=== PATIENT | male | born 1940 | race Caucasian/White ===

== ENCOUNTER → 2016-10-03 | Outpatient (CLI) | payer MEDICARE, BC ==
[2016-10-03 10:52] LABS: Hemoglobin A1C 9.3 % (4.2-6.1)
== END | disposition home or self-care (01) ==
LOC: LABWHC1 06:45
PROVIDERS: ATTEND Physician Assistant
DX: E11.9 Type 2 diabetes mellitus without complications (principal)
CPT/HCPCS: 36415; 83036

== ENCOUNTER → 2017-01-01 | Outpatient (CLI) | payer MEDICARE, BC ==
[2017-01-01 07:20] LABS: Basophils # (A) 0.1 k/uL (0-0.2); Basophils % (A) 1 %; CH 31.5; CHCM 35.6; Eosinophils # (A) 0.3 k/uL (0-0.7); Eosinophils % (A) 4 %; HCT 43.7 % (39.0-53.0); HGB 14.9 gm/dL (13.0-17.5); Luc # (Auto) 0.32; Luc % (Auto) 4; Lymphocytes # (A) 2.1 k/uL (1.0-4.8); Lymphocytes % (A) 26 %; MCH 30.3 pg (25.0-35.0); MCHC 34.1 g/dL (31.0-37.0); MCV 88.8 fL (80.0-100.0); Mean Platelet Volume 8.6; Monocytes # (A) 0.6 k/uL (0-1.0); Monocytes % (A) 7 %; Neutrophils # (A) 4.6 k/uL (1.3-7.7); Neutrophils % (A) 58 %; RBC 4.92 m/uL (4.30-5.90); RDW 13.8 % (11.5-15.5); WBC 7.9 k/uL (3.8-10.6); WBC (Perox) 8.45
[2017-01-01 13:58] LABS: ALT 49 U/L (21-72); AST 36 U/L (17-59); Alkaline Phosphatase 135 U/L (38-126); Anion Gap 10 mmol/L; Blood Urea Nitrogen 20 mg/dL (9-20); Calcium 9.4 mg/dL (8.4-10.2); Carbon Dioxide 28 mmol/L (22-30); Chloride 102 mmol/L (98-107); Cholesterol 153 mg/dL (<200); Glucose 220 mg/dL (74-99); HDL Cholesterol 36 mg/dL (40-60); Non-African American GFR(MDRD) >60 (>60 ml/min/1.73 sqM); Potassium 4.4 mmol/L (3.5-5.1); Sodium 140 mmol/L (137-145); Total Bilirubin 0.9 mg/dL (0.2-1.3); Triglycerides 189 mg/dL (<150)
[2017-01-01 14:18] LABS: Prostate Specific Antigen <0.06 ng/mL (0.00-4.00)
== END | disposition home or self-care (01) ==
LOC: LABWHC1 06:51
PROVIDERS: ATTEND Family Medicine
DX: E78.5 Hyperlipidemia, unspecified (principal); E11.59 Type 2 diabetes mellitus with other circulatory complications; Z12.5 Encounter for screening for malignant neoplasm of prostate
CPT/HCPCS: 36415; 80053; 80061; 83036; 84153; 84443; 85025

== ENCOUNTER → 2017-04-02 | Outpatient (CLI) | payer MEDICARE, BC ==
[2017-04-02 08:18] LABS: Basophils # (A) 0.1 k/uL (0-0.2); Basophils % (A) 1 %; CHCM 34.5; Eosinophils # (A) 0.3 k/uL (0-0.7); Eosinophils % (A) 4 %; HDW 2.82; HGB 15.7 gm/dL (13.0-17.5); Luc # (Auto) 0.25; Luc % (Auto) 3; Lymphocytes # (A) 2.2 k/uL (1.0-4.8); Lymphocytes % (A) 28 %; MCH 30.1 pg (25.0-35.0); MCHC 33.3 g/dL (31.0-37.0); MCV 90.3 fL (80.0-100.0); Mean Platelet Volume 9.4; Monocytes # (A) 0.6 k/uL (0-1.0); Monocytes % (A) 7 %; Neutrophils # (A) 4.5 k/uL (1.3-7.7); Neutrophils % (A) 57 %; RBC 5.21 m/uL (4.30-5.90); RDW 13.8 % (11.5-15.5); WBC 7.9 k/uL (3.8-10.6); WBC (Perox) 7.57
[2017-04-02 08:31] LABS: ALT 60 U/L (21-72); AST 41 U/L (17-59); Alkaline Phosphatase 130 U/L (38-126); Anion Gap 9 mmol/L; Blood Urea Nitrogen 20 mg/dL (9-20); Calcium 9.5 mg/dL (8.4-10.2); Carbon Dioxide 27 mmol/L (22-30); Chloride 106 mmol/L (98-107); Glucose 156 mg/dL (74-99); Non-African American GFR(MDRD) >60 (>60 ml/min/1.73 sqM); Potassium 4.2 mmol/L (3.5-5.1); Sodium 142 mmol/L (137-145); Total Bilirubin 0.7 mg/dL (0.2-1.3); Total Protein 6.8 g/dL (6.3-8.2)
[2017-04-02 12:44] LABS: Hemoglobin A1C 8.7 % (4.2-6.1)
== END | disposition home or self-care (01) ==
LOC: LABWHC1 07:15
PROVIDERS: ATTEND Family Medicine
DX: E11.59 Type 2 diabetes mellitus with other circulatory complications (principal)
CPT/HCPCS: 36415; 80053; 83036; 85025

== ENCOUNTER → 2017-04-21 | Outpatient (CLI) | payer MEDICARE, BC ==
[2017-04-21 07:09] LABS: ALT 55 U/L (21-72); AST 37 U/L (17-59); Cholesterol 195 mg/dL (<200); HDL Cholesterol 36 mg/dL (40-60); Triglycerides 273 mg/dL (<150)
== END | disposition home or self-care (01) ==
LOC: LABWHC1 06:39
PROVIDERS: ATTEND Internal Medicine Cardiovascular Disease
DX: E78.2 Mixed hyperlipidemia (principal)
CPT/HCPCS: 36415; 80061; 84450; 84460

== ENCOUNTER → 2017-07-03 | Outpatient (CLI) | payer MEDICARE, BC ==
[2017-07-03 07:47] LABS: Basophils # (A) 0.1 k/uL (0-0.2); Basophils % (A) 1 %; CH 30.6; CHCM 33.9; Eosinophils # (A) 0.3 k/uL (0-0.7); Eosinophils % (A) 4 %; HCT 44.5 % (39.0-53.0); HDW 2.94; HGB 15.2 gm/dL (13.0-17.5); Luc # (Auto) 0.16; Luc % (Auto) 3; Lymphocytes # (A) 1.7 k/uL (1.0-4.8); Lymphocytes % (A) 25 %; MCH 31.1 pg (25.0-35.0); MCHC 34.3 g/dL (31.0-37.0); MCV 90.8 fL (80.0-100.0); Mean Platelet Volume 8.6; Monocytes # (A) 0.6 k/uL (0-1.0); Monocytes % (A) 10 %; Neutrophils # (A) 3.8 k/uL (1.3-7.7); Neutrophils % (A) 58 %; RDW 13.1 % (11.5-15.5); WBC 6.6 k/uL (3.8-10.6); WBC (Perox) 6.45
[2017-07-03 07:56] LABS: Hemoglobin A1C 8.6 % (4.2-6.1)
[2017-07-03 08:00] LABS: ALT 62 U/L (21-72); AST 40 U/L (17-59); Alkaline Phosphatase 136 U/L (38-126); Anion Gap 10 mmol/L; Blood Urea Nitrogen 18 mg/dL (9-20); Calcium 9.7 mg/dL (8.4-10.2); Carbon Dioxide 26 mmol/L (22-30); Chloride 104 mmol/L (98-107); Glucose 277 mg/dL (74-99); Non-African American GFR(MDRD) >60 (>60 ml/min/1.73 sqM); Potassium 4.5 mmol/L (3.5-5.1); Sodium 140 mmol/L (137-145); Total Bilirubin 0.7 mg/dL (0.2-1.3)
== END | disposition home or self-care (01) ==
LOC: LABWHC1 07:23
PROVIDERS: ATTEND Family Medicine
DX: E11.9 Type 2 diabetes mellitus without complications (principal)
CPT/HCPCS: 36415; 80053; 83036; 85025

== ENCOUNTER → 2017-12-31 | Outpatient (CLI) | payer MEDICARE, BC ==
[2017-12-31 09:44] LABS: Basophils % (A) 1 %; Eosinophils # (A) 0.3 k/uL (0-0.7); Eosinophils % (A) 4 %; HCT 42.5 % (39.0-53.0); HGB 15.1 gm/dL (13.0-17.5); Lymphocytes % (A) 23 %; MCH 30.8 pg (25.0-35.0); MCHC 35.5 g/dL (31.0-37.0); MCV 86.6 fL (80.0-100.0); Mean Platelet Volume 8.4; Monocytes # (A) 0.7 k/uL (0-1.0); Monocytes % (A) 8 %; Neutrophils # (A) 5.4 k/uL (1.3-7.7); Neutrophils % (A) 62 %; Platelet Count 178 k/uL (150-450); RBC 4.91 m/uL (4.30-5.90); RDW 13.6 % (11.5-15.5); WBC 8.6 k/uL (3.8-10.6)
[2017-12-31 14:42] LABS: ALT 41 U/L (21-72); AST 32 U/L (17-59); Albumin 4.1 g/dL (3.5-5.0); Alkaline Phosphatase 98 U/L (38-126); Anion Gap 11 mmol/L; Blood Urea Nitrogen 21 mg/dL (9-20); Calcium 10.3 mg/dL (8.4-10.2); Carbon Dioxide 32 mmol/L (22-30); Chloride 104 mmol/L (98-107); Cholesterol 148 mg/dL (<200); Glucose 77 mg/dL (74-99); HDL Cholesterol 42 mg/dL (40-60); LDL Cholesterol,Calculated 69 mg/dL (0-99); Potassium 4.3 mmol/L (3.5-5.1); Sodium 147 mmol/L (137-145); Total Bilirubin 0.5 mg/dL (0.2-1.3); Total Protein 7.1 g/dL (6.3-8.2); Triglycerides 185 mg/dL (<150)
[2017-12-31 15:17] LABS: Prostate Specific Antigen <0.10 ng/mL (0.00-4.00)
[2017-12-31 19:30] LABS: Hemoglobin A1C 7.6 % (4.0-6.0)
== END | disposition home or self-care (01) ==
LOC: LABWHC1 09:04
PROVIDERS: ATTEND Family Medicine
DX: E11.9 Type 2 diabetes mellitus without complications (principal); Z12.5 Encounter for screening for malignant neoplasm of prostate
CPT/HCPCS: 36415; 80053; 80061; 83036; 84153; 85025

== ENCOUNTER → 2018-04-03 | Outpatient (CLI) | payer MEDICARE, BC ==
[2018-04-03 07:27] LABS: ALT 41 U/L (21-72); AST 32 U/L (17-59); Albumin 4.1 g/dL (3.5-5.0); Alkaline Phosphatase 117 U/L (38-126); Anion Gap 7 mmol/L; Blood Urea Nitrogen 17 mg/dL (9-20); Calcium 9.1 mg/dL (8.4-10.2); Carbon Dioxide 28 mmol/L (22-30); Chloride 106 mmol/L (98-107); Glucose 157 mg/dL (74-99); Potassium 4.1 mmol/L (3.5-5.1); Sodium 141 mmol/L (137-145); Total Bilirubin 0.5 mg/dL (0.2-1.3); Total Protein 6.7 g/dL (6.3-8.2)
[2018-04-03 20:28] LABS: Hemoglobin A1C 7.4 % (4.0-6.0)
== END | disposition home or self-care (01) ==
LOC: LABWHC1 06:44
PROVIDERS: ATTEND Family Medicine
DX: E11.9 Type 2 diabetes mellitus without complications (principal)
CPT/HCPCS: 36415; 80053; 82043; 82570; 83036

== ENCOUNTER → 2018-05-19 | Outpatient (CLI) | payer MEDICARE, BC ==
[2018-05-19 07:25] LABS: ALT 43 U/L (21-72); AST 33 U/L (17-59); Cholesterol 167 mg/dL (<200); HDL Cholesterol 37 mg/dL (40-60); LDL Cholesterol,Calculated 73 mg/dL (0-99); Triglycerides 285 mg/dL (<150)
== END | disposition home or self-care (01) ==
LOC: LABWHC1 06:50
PROVIDERS: ATTEND Internal Medicine Cardiovascular Disease
DX: E78.2 Mixed hyperlipidemia (principal)
CPT/HCPCS: 36415; 80061; 84450; 84460

== ENCOUNTER → 2020-01-25 | Outpatient (CLI) | payer MEDICARE, BC | END | disposition home or self-care (01) | LOC: LABWHC1 09:47 | PROVIDERS: ATTEND Surgery Plastic and Reconstructive Surgery | DX: U07.1 COVID-19 (principal) | CPT/HCPCS: 87635 ==

== ENCOUNTER 2020-02-03 07:05 | Day surgery (SDC) | payer MEDICARE, BC ==
[2020-02-01 16:39] VITALS: BMI 30.7
--- NOTE | 2020-02-02 19:26 | P.GSHP ---
History of Present Illness H&P Date: 02/03/20 CHIEF COMPLAINT: Cologaurd positive HISTORY OF PRESENT ILLNESS: The patient is a 79-year-old male who presents with positive cologaurd. Lower endoscopy was offered for further evaluation and management. PAST MEDICAL HISTORY: Please see list. PAST SURGICAL HISTORY: Please see list. MEDICATIONS: Please see list. ALLERGIES: Please see list. SOCIAL HISTORY: No illicit drug use FAMILY HISTORY: No reports of Crohn disease or ulcerative colitis. REVIEW OF ORGAN SYSTEMS: CONSTITUTIONAL: No reports of fevers or chills. PHYSICAL EXAM: VITAL SIGNS: Stable GENERAL: Well-developed pleasant in no acute distress. HEENT: No scleral icterus. Extraocular movements grossly intact. Moist buccal mucosa. NECK: Supple without lymphadenopathy. CHEST: Unlabored respirations. Equal bilateral excursions. CARDIOVASCULAR: Regular rate and rhythm. Distal 2+ pulses. ABDOMEN: Soft, nontender, nondistended. MUSCULOSKELETAL: No clubbing, cyanosis, or edema. ASSESSMENT: 1. Positive cologaurd. PLAN: 1. Recommend proceeding with a lower endoscopy Past Medical History Past Medical History: Diabetes Mellitus, GERD/Reflux, Hyperlipidemia Additional Past Medical History / Comment(s): STATES DR SEEN SOMETHING WITH PREVIOUS COLONOSCOPY., PT UNSURE WHAT HE TAKES VASOTEC AND AMLODIPINE FOR. History of Any Multi-Drug Resistant Organisms: None Reported Past Surgical History: Joint Replacement Additional Past Surgical History / Comment(s): carolyn total knee , colonoscopy, cataracts Past Anesthesia/Blood Transfusion Reactions: No Reported Reaction Past Psychological History: No Psychological Hx Reported Smoking Status: Former smoker Past Alcohol Use History: None Reported Additional Past Alcohol Use History / Comment(s): quit smoking over 25 yrs ago, smoked 1 ppd. Past Drug Use History: None Reported - Past Family History Mother Family Medical History: No Reported History Medications and Allergies Home Medications Medication Instructions Recorded Confirmed Type Aspirin [Adult Low Dose Aspirin EC] 81 mg PO DAILY 02/01/20 02/01/20 History Atorvastatin [Lipitor] 20 mg PO HS 02/01/20 02/01/20 History Enalapril [Vasotec] 5 mg PO DAILY 02/01/20 02/01/20 History Glimepiride [Amaryl] 2 mg PO AC-BRKFST 02/01/20 02/01/20 History Insulin Aspart Protam & Aspart 105 unit SQ DAILY 02/01/20 02/01/20 History [NovoLOG MIX 70-30 Flexpen] Insulin Aspart Protam & Aspart 115 unit SQ HS 02/01/20 02/01/20 History [NovoLOG MIX 70-30 Flexpen] Liraglutide [Victoza 2-Vasquez] 1.2 mg SQ DAILY 02/01/20 02/01/20 History Omeprazole [PriLOSEC] 40 mg PO DAILY 02/01/20 02/01/20 History amLODIPine [Norvasc] 10 mg PO DAILY 02/01/20 02/01/20 History Allergies Allergy/AdvReac Type Severity Reaction Status Date / Time No Known Allergies Allergy Verified 02/01/20 16:08
[~2020-02-03 07:05] MED LIST: LACTATED RINGERS 1,000 ML IV SCH
[2020-02-03 07:47] LABS: Glucose,Whole Blood 83 mg/dL (75-99)
[2020-02-03 07:49] VITALS: RESP 16; TEMP 97
[2020-02-03] MEDS ORDERED: LIDOCAINE 1% INJ 10MG/ML (20 ML MDV) ONE (08:26)
[2020-02-03] MEDS ORDERED: MIDAZOLAM 2 MG/2 ML VIAL ONE (08:26)
[2020-02-03] MEDS ORDERED: PROPOFOL 10 MG/ML 20 ML VIAL IV ONE (08:26)
--- NOTE | 2020-02-03 09:10 | P.PCN ---
Date of Procedure: 02/03/20 Description of Procedure: PREOPERATIVE DIAGNOSIS: Positive cologaurd First lifetime colonoscopy POSTOPERATIVE DIAGNOSIS: Tubular adenoma ascending colon Tubular adenoma transverse colon Adenoma descending colon Sigmoid diverticulosis, moderate to severe OPERATION: Colonoscopy to the ileocecal valve and appendiceal orifice. Colonoscopy with multiple hot snare polypectomies SURGEON: Lauryn Chu MD. ANESTHESIA: MAC. INDICATIONS: The patient is an 79-year-old male who presents for his first colonoscopy in his lifetime. He had a positive stool test, cologaurd. Benefits and risks were described and informed consent was obtained. DESCRIPTION OF PROCEDURE: The patient had undergone Suprep. He had been brought into the operating room and laid in the left lateral decubitus position. After adequate intravenous sedation, the rectum was examined with 2% lidocaine jelly. The prostate was unremarkable. No external hemorrhoids were encountered. The rectal tone was within normal limits. No lesions were palpated in the rectal vault. An Olympus colonoscope was advanced until the ileocecal valve and appendiceal orifice were clearly viewed. The prep was good. Sigmoid diverticulosis moderate to severe was encountered. Multiple colonic polyps were found and snare polypectomy. No evidence of focal colitis was found. Retroflexion of the scope demonstrated grade 1 internal hemorrhoids without active bleeding or inflammation. The colon was desufflated. The patient had tolerated the procedure well. Withdrawal time was over 6 minutes. FINDINGS: Aronchick preparation quality scale 1 (1-5) Internal hemorrhoids, grade 1 without recent inflammation and bleeding No arteriovenous malformations. Sigmoid diverticulosis, moderate to severe Removal of 6 polyps: - Snare polypectomy at cecum, 4 mm tubulovillous adenoma polyp. - Snare polypectomy 60 cm from the anal verge, 8 mm flat villous adenoma polyp, distal transverse colon - Snare polypectomy 50 cm from the anal verge, 12 mm flat villous adenoma polyp, descending colon - Snare polypectomy 48 cm from the anal verge, 5 mm tubulovillous adenoma polyp, descending colon - Snare polypectomy 46 cm from the anal verge, 8 mm flat villous adenoma polyp, descending colon - Snare polypectomy 38 cm from the anal verge, 12 mm flat villous adenoma polyp, descending colon No focal colitis. RECOMMENDATIONS: Given severity of tubular adenomas, recommend repeat colonoscopy 2 years, 2021. Plan - Discharge Summary New Discharge Prescriptions: No Action Aspirin [Adult Low Dose Aspirin EC] 81 mg PO DAILY Glimepiride [Amaryl] 2 mg PO AC-BRKFST amLODIPine [Norvasc] 10 mg PO DAILY Enalapril [Vasotec] 5 mg PO DAILY Omeprazole [PriLOSEC] 40 mg PO DAILY Atorvastatin [Lipitor] 20 mg PO HS Insulin Aspart Protam & Aspart [NovoLOG MIX 70-30 Flexpen] 105 unit SQ DAILY Insulin Aspart Protam & Aspart [NovoLOG MIX 70-30 Flexpen] 115 unit SQ HS Liraglutide [Victoza 2-Vasquez] 1.2 mg SQ DAILY Discharge Medication List Aspirin [Adult Low Dose Aspirin EC] 81 mg PO DAILY 02/01/20 [History] Atorvastatin [Lipitor] 20 mg PO HS 02/01/20 [History] Enalapril [Vasotec] 5 mg PO DAILY 02/01/20 [History] Glimepiride [Amaryl] 2 mg PO AC-BRKFST 02/01/20 [History] Insulin Aspart Protam & Aspart [NovoLOG MIX 70-30 Flexpen] 105 unit SQ DAILY 02/01/20 [History] Insulin Aspart Protam & Aspart [NovoLOG MIX 70-30 Flexpen] 115 unit SQ HS 02/01/20 [History] Liraglutide [Victoza 2-Vasquez] 1.2 mg SQ DAILY 02/01/20 [History] Omeprazole [PriLOSEC] 40 mg PO DAILY 02/01/20 [History] amLODIPine [Norvasc] 10 mg PO DAILY 02/01/20 [History]
--- NOTE | 2020-02-03 09:17 | P.HPADDEND ---
H&P Addendum H&P Addendum Date: 02/03/20 Patient never had a colonoscopy before. He has a positive stool study test for adenoma. We'll proceed with colonoscopy
[2020-02-03 09:28] LABS: Glucose,Whole Blood 32 mg/dL (75-99)
[2020-02-03 09:28] LABS: Glucose,Whole Blood 33 mg/dL (75-99)
[2020-02-03] MEDS ORDERED: DEXTROSE 50% SYRINGE 50 ML IVP ONE (09:30)
[2020-02-03] MEDS ORDERED: LACTATED RINGERS 1,000 ML IV ONE (09:30)
[2020-02-03 09:33] VITALS: PULSE 67
[2020-02-03 09:48] LABS: Glucose,Whole Blood 120 mg/dL (75-99)
[2020-02-03 09:51] VITALS: BP 139/64
== END 2020-02-03 10:00 | disposition home or self-care (01) ==
LOC: ORWHC2ENDO 07:05
PROVIDERS: ATTEND Surgery Plastic and Reconstructive Surgery
DX: D12.0 Benign neoplasm of cecum (principal); D12.4 Benign neoplasm of descending colon; D12.3 Benign neoplasm of transverse colon; D12.2 Benign neoplasm of ascending colon; K57.30 Diverticulosis of large intestine without perforation or abscess without bleeding; K64.0 First degree hemorrhoids; I10 Essential (primary) hypertension; E11.9 Type 2 diabetes mellitus without complications; E78.5 Hyperlipidemia, unspecified; K21.9 Gastro-esophageal reflux disease without esophagitis; Z87.891 Personal history of nicotine dependence; Z79.4 Long term (current) use of insulin; Z79.82 Long term (current) use of aspirin; Z79.899 Other long term (current) drug therapy; Z98.890 Other specified postprocedural states; Z96.653 Presence of artificial knee joint, bilateral; Z98.49 Cataract extraction status, unspecified eye
CPT/HCPCS: 88305; 87635; 45385; J2250; J2001; J2704

== ENCOUNTER 2020-03-19 13:00 | Emergency (ER) | payer MEDICARE, BC ==
[2020-03-19 13:23] VITALS: BP 122/61; PULSE 95; RESP 18; TEMP 98.4
[2020-03-19] MEDS ORDERED: MORPHINE SULFATE 4 MG/ML SYRINGE IM STA (14:54)
--- NOTE | 2020-03-19 15:20 | XR ---
EXAMINATION TYPE: XR Hip RT and AP Pelvis DATE OF EXAM: 03/19/2020 COMPARISON: NONE HISTORY: Hip pain TECHNIQUE: 3 views FINDINGS: Pelvic ring is intact. There is some minimal acetabular spurring. There is evidence of nond isplaced chip fracture of the greater trochanter of the right femur. There is vascular calcification. Sacroiliac joint appears intact. IMPRESSION: Chip fracture of the greater trochanter.
--- NOTE | 2020-03-19 15:41 | ED ---
General Adult HPI - General Chief complaint: Extremity Injury, Lower Stated complaint: Fall- Hip Injury Time Seen by Provider: 03/19/20 14:37 Source: patient, RN notes reviewed Mode of arrival: wheelchair Limitations: no limitations - History of Present Illness Initial comments: 71-year-old male presents to the emergency department for a chief complaint of right hip pain. Patient [place] when he tripped and fell over a hose. Patient fell and hit his right hip. States he has been able to ambulate on it but it is painful. States it is painful to bend and move. Patient did not hit his head. He did not have any other injuries. He does not take any blood thinners.Patient has no other complaints at this time including shortness of breath, chest pain, abdominal pain, nausea or vomiting, headache, or visual changes. - Related Data Home Medications Medication Instructions Recorded Confirmed Aspirin [Adult Low Dose Aspirin EC] 81 mg PO DAILY 02/01/20 02/03/20 Atorvastatin [Lipitor] 20 mg PO HS 02/01/20 02/03/20 Enalapril [Vasotec] 5 mg PO DAILY 02/01/20 02/03/20 Glimepiride [Amaryl] 2 mg PO AC-BRKFST 02/01/20 02/03/20 Insulin Aspart Protam & Aspart 105 unit SQ DAILY 02/01/20 02/03/20 [NovoLOG MIX 70-30 Flexpen] Insulin Aspart Protam & Aspart 115 unit SQ HS 02/01/20 02/03/20 [NovoLOG MIX 70-30 Flexpen] Liraglutide [Victoza 2-Vasquez] 1.2 mg SQ DAILY 02/01/20 02/03/20 Omeprazole [PriLOSEC] 40 mg PO DAILY 02/01/20 02/03/20 amLODIPine [Norvasc] 10 mg PO DAILY 02/01/20 02/03/20 Allergies Allergy/AdvReac Type Severity Reaction Status Date / Time No Known Allergies Allergy Verified 03/19/20 13:23 Review of Systems ROS Statement: Those systems with pertinent positive or pertinent negative responses have been documented in the HPI. ROS Other: All systems not noted in ROS Statement are negative. Past Medical History Past Medical History: Diabetes Mellitus, Hyperlipidemia, Hypertension History of Any Multi-Drug Resistant Organisms: None Reported Past Surgical History: Joint Replacement Additional Past Surgical History / Comment(s): eye surgery Past Psychological History: No Psychological Hx Reported Smoking Status: Former smoker Past Alcohol Use History: None Reported Past Drug Use History: None Reported General Exam Limitations: no limitations General appearance: alert, in no apparent distress Head exam: Present: atraumatic, normocephalic, normal inspection Eye exam: Present: normal appearance ENT exam: Present: normal exam, mucous membranes moist Neck exam: Present: normal inspection. Absent: tenderness, meningismus, lymphadenopathy Respiratory exam: Present: normal lung sounds bilaterally. Absent: respiratory distress, wheezes, rales, rhonchi, stridor Cardiovascular Exam: Present: regular rate, normal rhythm, normal heart sounds. Absent: systolic murmur, diastolic murmur, rubs, gallop, clicks GI/Abdominal exam: Present: soft, normal bowel sounds. Absent: distended, tenderness, guarding, rebound, rigid Extremities exam: Present: normal inspection, tenderness (Tenderness to the lateral aspect of the right hip.), normal capillary refill (Capillary refill less than 2 seconds, DP signals evident on Doppler.). Absent: full ROM (Patient has limited range of motion of the right hip secondary to pain however flexor and extensor mechanisms are intact.), pedal edema, joint swelling, calf tenderness Course Vital Signs 03/19/20 13:20 Temperature 98.4 F Pulse Rate 95 Respiratory 18 Rate Blood Pressure 122/61 O2 Sat by Pulse 99 Oximetry Medical Decision Making - Medical Decision Making X-ray of the right hip and pelvis shows a chip fracture of the greater trochanter. Patient was able to ambulate with assistance well in the emergency room. Patient was given IM morphine and did have improvement in pain. Patient was offered [place] for home but refused and requested Tylenol 3. Patient's family member state they're comfortable caring for patient. She states she works at [employer] and is able to help him around the house. States they have a ramp and a shower chair. He will follow up with orthopedics on Friday. He'll return here for any worsening symptoms. Disposition Clinical Impression: Hip pain, right, Fracture of greater trochanter Disposition: HOME SELF-CARE Condition: Good Instructions (If sedation given, give patient instructions): Hip Fracture (ED) Additional Instructions: Please take Tylenol 3 and Motrin for pain. Follow-up with orthopedics on Monda y. If you have worsening pain or are unable to tolerate pain or care for herself at home return to the emergency room. Is patient prescribed a controlled substance at d/c from ED?: No Referrals: Natanael Gibbons MD [Primary Care Provider] - 1-2 days Arnol Naidu MD [Medical Doctor] - 1-2 days Time of Disposition: 16:15
[2020-03-19] MEDS ORDERED: ACET/COD 300 MG/30 MG STARTER PACK 6 TAB BTL PO STA (16:48)
== END 2020-03-19 17:05 | disposition home or self-care (01) ==
LOC: EC 13:00
DX: S72.114A Nondisplaced fracture of greater trochanter of right femur, initial encounter for closed fracture (principal); E11.9 Type 2 diabetes mellitus without complications; E78.5 Hyperlipidemia, unspecified; I10 Essential (primary) hypertension; Z79.82 Long term (current) use of aspirin; Z79.4 Long term (current) use of insulin; Z79.899 Other long term (current) drug therapy; Z87.891 Personal history of nicotine dependence; W01.10XA Fall on same level from slipping, tripping and stumbling with subsequent striking against unspecified object, initial encounter; Y93.01 Activity, walking, marching and hiking; Y92.009 Unspecified place in unspecified non-institutional (private) residence as the place of occurrence of the external cause
CPT/HCPCS: 73502; 96372; 99283; J2270

== ENCOUNTER → 2020-04-12 | Outpatient (CLI) | payer MEDICARE, BC ==
--- NOTE | 2020-04-12 12:36 | CT ---
EXAMINATION TYPE: CT hip RT wo con DATE OF EXAM: 04/12/2020 COMPARISON: Pelvis and right hip radiograph 03/19/2020 HISTORY: Nondisplaced fracture right femur CT DLP: 563.6 mGycm Automated exposure control for dose reduction was used. TECHNIQUE: CT imaging through the right hip was obtained without administration of intravenous contra st. Coronal and sagittal reformatted images were obtained. Three-dimensional images were generated on a separate workstation. FINDINGS: There is a comminuted fracture of the right femur greater trochanter with mild displacement, and no s ignificant angulation. There is no extension of the fracture to the intertrochanteric region. There i s minimal soft tissue edema associated with the fracture. Diffusely decreased osseous mineralization. No evidence of hip dislocation.. There is mild degenerative spurring of the right hip. 3-dimensional images consistent with the above findings. IMPRESSION: COMMINUTED MILDLY DISPLACED FRACTURE OF THE RIGHT FEMUR GREATER TROCHANTER.
== END | disposition home or self-care (01) ==
LOC: RADCTMAIN 08:59
PROVIDERS: ATTEND Orthopaedic Surgery
DX: S72.111A Displaced fracture of greater trochanter of right femur, initial encounter for closed fracture (principal)

== ENCOUNTER → 2020-06-23 | Outpatient (CLI) | payer MEDICARE, BC ==
[2020-06-23 19:40] LABS: Chol/HDL Ratio 4.89
== END | disposition home or self-care (01) ==
LOC: LABWHC1 07:23
PROVIDERS: ATTEND Internal Medicine Cardiovascular Disease
DX: E78.5 Hyperlipidemia, unspecified (principal)
CPT/HCPCS: 36415; 80061; 84450; 84460

== ENCOUNTER 2021-01-21 16:12 | Inpatient (IN) | payer MEDICARE, BC ==
[2021-01-21 16:21] LABS: Glucose,Whole Blood 153 mg/dL (75-99)
--- NOTE | 2021-01-21 16:44 | ED ---
General Adult HPI - General Source: patient Mode of arrival: ambulatory Limitations: no limitations <Pavan Marrero - Last Filed: 01/21/21 18:44> <Yanira Palma - Last Filed: 02/03/21 18:02> - General Chief complaint: Recheck/Abnormal Lab/Rx Stated complaint: Low blood sugar/sent by PCP Time Seen by Provider: 01/21/21 16:21 - History of Present Illness Initial comments: 80-year-old male presents to the emergency room for a chief complaint of low blood sugar. Patient reports that he has had low blood sugar . States he was at his primary care doctor's office and had blood work drawn and was called Friday to Tylenol is low. Patient states he had an episode of weakness today where he had to sit down on the ground and get help from his neighbor. When he checked his blood sugar was 51. Patient drank apple juice and ate crackers. Patient called his doctor who told him to come into the ER. Patient does take 105 units of NovoLog in the morning which she did take today and 115 units at night. Patient has not had any recent adjustments.Patient has no other complaints at this time including shortness of breath, chest pain, abdominal pain, nausea or vomiting, headache, or visual changes. (Pavan Marrero) - Related Data Home Medications Medication Instructions Recorded Confirmed Aspirin [Adult Low Dose Aspirin EC] 81 mg PO DAILY 02/01/20 01/21/21 Enalapril [Vasotec] 5 mg PO DAILY 02/01/20 01/21/21 Glimepiride [Amaryl] 4 mg PO AC-BRKFST 02/01/20 01/21/21 Liraglutide [Victoza 2-Vasquez] 1.2 mg SQ DAILY 02/01/20 01/21/21 Omeprazole [PriLOSEC] 40 mg PO DAILY 02/01/20 01/21/21 amLODIPine [Norvasc] 10 mg PO DAILY 02/01/20 01/21/21 [place]-3 Fatty Acids/Fish Oil [Fish 1 cap PO DAILY 01/21/21 01/21/21 Oil 1,000 mg Softgel] Previous Rx's Medication Instructions Recorded Atorvastatin [Lipitor] 80 mg PO HS 30 Days #30 tab 01/24/21 Azithromycin [Zithromax Z-pack (6 See Taper PO DIRECTED 5 Days #6 01/24/21 tabs)] tab Cefdinir [Omnicef] 300 mg PO Q12HR 5 Days #10 capsule 01/24/21 Clopidogrel Bisulfate [Plavix] 75 mg PO DAILY 30 Days #30 tab 01/24/21 Clopidogrel [Plavix] 75 mg PO DAILY 30 Days #30 tab 01/24/21 Insuln Asp Prt/Insulin Aspart 50 unit SQ AC-BID #7 vial 01/24/21 [NovoLOG MIX 70-30 VIAL] Allergies Allergy/AdvReac Type Severity Reaction Status Date / Time No Known Allergies Allergy Verified 01/21/21 17:10 Review of Systems ROS Other: All systems not noted in ROS Statement are negative. <Pavan Marrero P - Last Filed: 01/21/21 18:44> ROS Other: All systems not noted in ROS Statement are negative. <Yanira Palma A - Last Filed: 02/03/21 18:02> ROS Statement: Those systems with pertinent positive or pertinent negative responses have been documented in the HPI. Past Medical History Past Medical History: Diabetes Mellitus, Hyperlipidemia, Hypertension History of Any Multi-Drug Resistant Organisms: None Reported Past Surgical History: Joint Replacement Additional Past Surgical History / Comment(s): eye surgery Past Psychological History: No Psychological Hx Reported Smoking Status: Never smoker Past Alcohol Use History: None Reported Past Drug Use History: None Reported <Pavan Marrero P - Last Filed: 01/21/21 18:44> General Exam Limitations: no limitations General appearance: alert, in no apparent distress Head exam: Present: atraumatic, normocephalic, normal inspection Eye exam: Present: normal appearance, PERRL, EOMI. Absent: scleral icterus, conjunctival injection, periorbital swelling ENT exam: Present: normal exam, mucous membranes moist Neck exam: Present: normal inspection. Absent: tenderness, meningismus, lymphadenopathy Respiratory exam: Present: normal lung sounds bilaterally. Absent: respiratory distress, wheezes, rales, rhonchi, stridor Cardiovascular Exam: Present: regular rate, normal rhythm, normal heart sounds. Absent: systolic murmur, diastolic murmur, rubs, gallop, clicks GI/Abdominal exam: Present: soft, normal bowel sounds. Absent: distended, tenderness, guarding, rebound, rigid <Janes,Pavan P - Last Filed: 01/21/21 18:44> Course Vital Signs 01/21/21 01/21/21 01/21/21 16:13 17:42 18:00 Temperature 97.4 F L Pulse Rate 94 70 77 Respiratory 17 18 18 Rate Blood Pressure 144/70 141/68 120/70 O2 Sat by Pulse 97 97 97 Oximetry 01/21/21 19:16 Temperature 97.4 F L Pulse Rate 77 Respiratory 18 Rate Blood Pressure 120/70 O2 Sat by Pulse 97 Oximetry Medical Decision Making - Lab Data Result diagrams: 01/21/21 17:30 01/21/21 17:30 <Pavan Marrero - Last Filed: 01/21/21 18:44> - Lab Data Result diagrams: 01/24/21 06:19 01/24/21 06:19 <Yanira Palma - Last Filed: 02/03/21 18:02> - Medical Decision Making Vitals are stable. Patient is well-appearing. White count of undetermined second consists noted at 19.5. Urinalysis unremarkable, chest x-ray shows no acute process. No fevers. CMP shows minimal hyperkalemia of 5.2. Patient has a glucose of 153 and 241 respectively. I did discuss his case with patient's primary care provider. Given recent episodes of hypoglycemia an episode of weakness today in which patient felt he could not get up to walk into the house he does want patient admitted for observation. (Pavan Marrero) I was available for consultation in the emergency department. The history and physical exam were done by the midlevel provider. I was consulted for this patients care. I reviewed the case with the midlevel provider and based on their presentation of the patient, I agree with the assessment, medical decision making and plan of care as documented. Chart was dictated using [employer] dictation software. Attempts were made to correct any dictation errors however some typographical errors may persist. Patient was seen during a national state of emergency due to the Covid-19 pandemic. (Yanira Palma) - Lab Data Lab Results 01/21/21 01/21/21 01/21/21 Range/Units 16:19 17:30 17:30 WBC 19.5 H (3.8-10.6) k/uL RBC 5.44 (4.30-5.90) m/uL Hgb 16.3 (13.0-17.5) gm/dL Hct 48.3 (39.0-53.0) % MCV 88.7 (80.0-100.0) fL MCH 30.0 (25.0-35.0) pg MCHC 33.9 (31.0-37.0) g/dL RDW 13.3 (11.5-15.5) % Plt Count 165 (150-450) k/uL MPV 8.7 Immature Gran % (Auto) % Absolute Nucleated RBC (0.00-0.00) X 10*3/uL Neutrophils % 85 % Lymphocytes % 8 % Monocytes % 6 % Eosinophils % 1 % Basophils % 0 % Immature Gran # (0.00-0.04) X 10*3/uL Neutrophils # 16.5 H (1.3-7.7) k/uL Lymphocytes # 1.5 (1.0-4.8) k/uL Monocytes # 1.1 H (0-1.0) k/uL Eosinophils # 0.2 (0-0.7) k/uL Basophils # 0.1 (0-0.2) k/uL NRBC/100 WBC Diff (0.0-0.0) /100 WBCS D-Dimer (<0.60) mg/L FEU Sodium (137-145) mmol/L Potassium (3.5-5.1) mmol/L Chloride (98-107) mmol/L Carbon Dioxide (22-30) mmol/L Anion Gap mmol/L BUN (9-20) mg/dL Creatinine (0.66-1.25) mg/dL Est GFR (CKD-EPI)AfAm (>60 ml/min/1.73 sqM) Est GFR (CKD-EPI)NonAf (>60 ml/min/1.73 sqM) BUN/Creatinine Ratio (12.00-20.00) Ratio Glucose (74-99) mg/dL POC Glucose (mg/dL) 153 H (75-99) mg/dL POC Glu Air Chipper ID Klaus, Zohreh Calcium (8.4-10.2) mg/dL Total Bilirubin (0.2-1.3) mg/dL AST (17-59) U/L ALT (4-49) U/L Alkaline Phosphatase (38-126) U/L Total Protein (6.3-8.2) g/dL Albumin (3.5-5.0) g/dL Urine Color Light Yellow Urine Appearance Clear (Clear) Urine pH 5.0 (5.0-8.0) Ur Specific [place] 1.011 (1.001-1.035) Urine Protein Negative (Negative) Urine Glucose (UA) Trace H (Negative) Urine Ketones Negative (Negative) Urine Blood Negative (Negative) Urine Nitrite Negative (Negative) Urine Bilirubin Negative (Negative) Urine Urobilinogen <2.0 (<2.0) mg/dL Ur Leukocyte Esterase Small H (Negative) Urine RBC 1 (0-5) /hpf Urine WBC 9 H (0-5) /hpf Urine Mucus Rare H (None) /hpf Coronavirus (PCR) (Not Detectd) 01/21/21 01/21/21 01/21/21 Range/Units 17:30 18:37 20:11 WBC (3.8-10.6) k/uL RBC (4.30-5.90) m/uL Hgb (13.0-17.5) gm/dL Hct (39.0-53.0) % MCV (80.0-100.0) fL MCH (25.0-35.0) pg MCHC (31.0-37.0) g/dL RDW (11.5-15.5) % Plt Count (150-450) k/uL MPV Immature Gran % (Auto) % Absolute Nucleated RBC (0.00-0.00) X 10*3/uL Neutrophils % % Lymphocytes % % Monocytes % % Eosinophils % % Basophils % % Immature Gran # (0.00-0.04) X 10*3/uL Neutrophils # (1.3-7.7) k/uL Lymphocytes # (1.0-4.8) k/uL Monocytes # (0-1.0) k/uL Eosinophils # (0-0.7) k/uL Basophils # (0-0.2) k/uL NRBC/100 WBC Diff (0.0-0.0) /100 WBCS D-Dimer (<0.60) mg/L FEU Sodium 134 L (137-145) mmol/L Potassium 5.2 H (3.5-5.1) mmol/L Chloride 100 (98-107) mmol/L Carbon Dioxide 26 (22-30) mmol/L Anion Gap 8 mmol/L BUN 35 H (9-20) mg/dL Creatinine 0.86 (0.66-1.25) mg/dL Est GFR (CKD-EPI)AfAm >90 (>60 ml/min/1.73 sqM) Est GFR (CKD-EPI)NonAf 83 (>60 ml/min/1.73 sqM) BUN/Creatinine Ratio (12.00-20.00) Ratio Glucose 241 H (74-99) mg/dL POC Glucose (mg/dL) 142 H (75-99) mg/dL POC Glu Air Chipper ID Georgina Khalil Calcium 9.7 (8.4-10.2) mg/dL Total Bilirubin 0.7 (0.2-1.3) mg/dL AST 38 (17-59) U/L ALT 34 (4-49) U/L Alkaline Phosphatase 117 (38-126) U/L Total Protein 7.1 (6.3-8.2) g/dL Albumin 4.2 (3.5-5.0) g/dL Urine Color Urine Appearance (Clear) Urine pH (5.0-8.0) Ur Specific [place] (1.001-1.035) Urine Protein (Negative) Urine Glucose (UA) (Negative) Urine Ketones (Negative) Urine Blood (Negative) Urine Nitrite (Negative) Urine Bilirubin (Negative) Urine Urobilinogen (<2.0) mg/dL Ur Leukocyte Esterase (Negative) Urine RBC (0-5) /hpf Urine WBC (0-5) /hpf Urine Mucus (None) /hpf Coronavirus (PCR) Not Detected (Not Detectd) 01/22/21 01/22/21 01/22/21 Range/Units 07:02 11:14 14:42 WBC (3.8-10.6) k/uL RBC (4.30-5.90) m/uL Hgb (13.0-17.5) gm/dL Hct (39.0-53.0) % MCV (80.0-100.0) fL MCH (25.0-35.0) pg MCHC (31.0-37.0) g/dL RDW (11.5-15.5) % Plt Count (150-450) k/uL MPV Immature Gran % (Auto) % Absolute Nucleated RBC (0.00-0.00) X 10*3/uL Neutrophils % % Lymphocytes % % Monocytes % % Eosinophils % % Basophils % % Immature Gran # (0.00-0.04) X 10*3/uL Neutrophils # (1.3-7.7) k/uL Lymphocytes # (1.0-4.8) k/uL Monocytes # (0-1.0) k/uL Eosinophils # (0-0.7) k/uL Basophils # (0-0.2) k/uL NRBC/100 WBC Diff (0.0-0.0) /100 WBCS D-Dimer (<0.60) mg/L FEU Sodium (137-145) mmol/L Potassium (3.5-5.1) mmol/L Chloride (98-107) mmol/L Carbon Dioxide (22-30) mmol/L Anion Gap mmol/L BUN (9-20) mg/dL Creatinine (0.66-1.25) mg/dL Est GFR (CKD-EPI)AfAm (>60 ml/min/1.73 sqM) Est GFR (CKD-EPI)NonAf (>60 ml/min/1.73 sqM) BUN/Creatinine Ratio (12.00-20.00) Ratio Glucose (74-99) mg/dL POC Glucose (mg/dL) 167 H 233 H 314 H (75-99) mg/dL POC Glu Air Chipper Chandni Coles Nicholle Rose, Nicholle Calcium (8.4-10.2) mg/dL Total Bilirubin (0.2-1.3) mg/dL AST (17-59) U/L ALT (4-49) U/L Alkaline Phosphatase (38-126) U/L Total Protein (6.3-8.2) g/dL Albumin (3.5-5.0) g/dL Urine Color Urine Appearance (Clear) Urine pH (5.0-8.0) Ur Specific [place] (1.001-1.035) Urine Protein (Negative) Urine Glucose (UA) (Negative) Urine Ketones (Negative) Urine Blood (Negative) Urine Nitrite (Negative) Urine Bilirubin (Negative) Urine Urobilinogen (<2.0) mg/dL Ur Leukocyte Esterase (Negative) Urine RBC (0-5) /hpf Urine WBC (0-5) /hpf Urine Mucus (None) /hpf Coronavirus (PCR) (Not Detectd) 01/22/21 01/22/21 01/22/21 Range/Units 15:21 17:26 20:48 WBC (3.8-10.6) k/uL RBC (4.30-5.90) m/uL Hgb (13.0-17.5) gm/dL Hct (39.0-53.0) % MCV (80.0-100.0) fL MCH (25.0-35.0) pg MCHC (31.0-37.0) g/dL RDW (11.5-15.5) % Plt Count (150-450) k/uL MPV Immature Gran % (Auto) % Absolute Nucleated RBC (0.00-0.00) X 10*3/uL Neutrophils % % Lymphocytes % % Monocytes % % Eosinophils % % Basophils % % Immature Gran # (0.00-0.04) X 10*3/uL Neutrophils # (1.3-7.7) k/uL Lymphocytes # (1.0-4.8) k/uL Monocytes # (0-1.0) k/uL Eosinophils # (0-0.7) k/uL Basophils # (0-0.2) k/uL NRBC/100 WBC Diff (0.0-0.0) /100 WBCS D-Dimer 0.37 (<0.60) mg/L FEU Sodium (137-145) mmol/L Potassium (3.5-5.1) mmol/L Chloride (98-107) mmol/L Carbon Dioxide (22-30) mmol/L Anion Gap mmol/L BUN (9-20) mg/dL Creatinine (0.66-1.25) mg/dL Est GFR (CKD-EPI)AfAm (>60 ml/min/1.73 sqM) Est GFR (CKD-EPI)NonAf (>60 ml/min/1.73 sqM) BUN/Creatinine Ratio (12.00-20.00) Ratio Glucose (74-99) mg/dL POC Glucose (mg/dL) 79 83 (75-99) mg/dL POC Glu Air Chipper ID Radha Calhoun Melinda Calcium (8.4-10.2) mg/dL Total Bilirubin (0.2-1.3) mg/dL AST (17-59) U/L ALT (4-49) U/L Alkaline Phosphatase (38-126) U/L Total Protein (6.3-8.2) g/dL Albumin (3.5-5.0) g/dL Urine Color Urine Appearance (Clear) Urine pH (5.0-8.0) Ur Specific [place] (1.001-1.035) Urine Protein (Negative) Urine Glucose (UA) (Negative) Urine Ketones (Negative) Urine Blood (Negative) Urine Nitrite (Negative) Urine Bilirubin (Negative) Urine Urobilinogen (<2.0) mg/dL Ur Leukocyte Esterase (Negative) Urine RBC (0-5) /hpf Urine WBC (0-5) /hpf Urine Mucus (None) /hpf Coronavirus (PCR) (Not Detectd) 01/23/21 01/23/21 01/23/21 Range/Units 00:53 05:11 05:11 WBC 10.65 H (3.8-10.6) k/uL RBC 5.16 (4.30-5.90) m/uL Hgb 15.1 (13.0-17.5) gm/dL Hct 46.6 (39.0-53.0) % MCV 90.3 (80.0-100.0) fL MCH 29.3 (25.0-35.0) pg MCHC 32.4 (31.0-37.0) g/dL RDW 13.1 (11.5-15.5) % Plt Count 148 (150-450) k/uL MPV 11.6 Immature Gran % (Auto) 1.2 % Absolute Nucleated RBC 0 (0.00-0.00) X 10*3/uL Neutrophils % 66.4 % Lymphocytes % 21.0 % Monocytes % 8.9 % Eosinophils % 1.8 % Basophils % 0.7 % Immature Gran # 0.13 H (0.00-0.04) X 10*3/uL Neutrophils # 7.07 (1.3-7.7) k/uL Lymphocytes # 2.24 (1.0-4.8) k/uL Monocytes # 0.95 (0-1.0) k/uL Eosinophils # 0.19 (0-0.7) k/uL Basophils # 0.07 (0-0.2) k/uL NRBC/100 WBC Diff 0 (0.0-0.0) /100 WBCS D-Dimer (<0.60) mg/L FEU Sodium 139 (137-145) mmol/L Potassium 4.7 (3.5-5.1) mmol/L Chloride 102 (98-107) mmol/L Carbon Dioxide 18.9 L (22-30) mmol/L Anion Gap 18.10 H mmol/L BUN 29.0 H (9-20) mg/dL Creatinine 0.9 (0.66-1.25) mg/dL Est GFR (CKD-EPI)AfAm 93.8 (>60 ml/min/1.73 sqM) Est GFR (CKD-EPI)NonAf 80.9 (>60 ml/min/1.73 sqM) BUN/Creatinine Ratio 32.22 H (12.00-20.00) Ratio Glucose 168 H (74-99) mg/dL POC Glucose (mg/dL) 221 H (75-99) mg/dL POC Glu Air Chipper ID Georgina Khalil Calcium 8.8 (8.4-10.2) mg/dL Total Bilirubin (0.2-1.3) mg/dL AST (17-59) U/L ALT (4-49) U/L Alkaline Phosphatase (38-126) U/L Total Protein (6.3-8.2) g/dL Albumin (3.5-5.0) g/dL Urine Color Urine Appearance (Clear) Urine pH (5.0-8.0) Ur Specific [place] (1.001-1.035) Urine Protein (Negative) Urine Glucose (UA) (Negative) Urine Ketones (Negative) Urine Blood (Negative) Urine Nitrite (Negative) Urine Bilirubin (Negative) Urine Urobilinogen (<2.0) mg/dL Ur Leukocyte Esterase (Negative) Urine RBC (0-5) /hpf Urine WBC (0-5) /hpf Urine Mucus (None) /hpf Coronavirus (PCR) (Not Detectd) 01/23/21 01/23/21 Range/Units 06:56 11:42 WBC (3.8-10.6) k/uL RBC (4.30-5.90) m/uL Hgb (13.0-17.5) gm/dL Hct (39.0-53.0) % MCV (80.0-100.0) fL MCH (25.0-35.0) pg MCHC (31.0-37.0) g/dL RDW (11.5-15.5) % Plt Count (150-450) k/uL MPV Immature Gran % (Auto) % Absolute Nucleated RBC (0.00-0.00) X 10*3/uL Neutrophils % % Lymphocytes % % Monocytes % % Eosinophils % % Basophils % % Immature Gran # (0.00-0.04) X 10*3/uL Neutrophils # (1.3-7.7) k/uL Lymphocytes # (1.0-4.8) k/uL Monocytes # (0-1.0) k/uL Eosinophils # (0-0.7) k/uL Basophils # (0-0.2) k/uL NRBC/100 WBC Diff (0.0-0.0) /100 WBCS D-Dimer (<0.60) mg/L FEU Sodium (137-145) mmol/L Potassium (3.5-5.1) mmol/L Chloride (98-107) mmol/L Carbon Dioxide (22-30) mmol/L Anion Gap mmol/L BUN (9-20) mg/dL Creatinine (0.66-1.25) mg/dL Est GFR (CKD-EPI)AfAm (>60 ml/min/1.73 sqM) Est GFR (CKD-EPI)NonAf (>60 ml/min/1.73 sqM) BUN/Creatinine Ratio (12.00-20.00) Ratio Glucose (74-99) mg/dL POC Glucose (mg/dL) 164 H 128 H (75-99) mg/dL POC Glu Air Chipper ID Patrick, Ranjana Patrick, Ranjana Calcium (8.4-10.2) mg/dL Total Bilirubin (0.2-1.3) mg/dL AST (17-59) U/L ALT (4-49) U/L Alkaline Phosphatase (38-126) U/L Total Protein (6.3-8.2) g/dL Albumin (3.5-5.0) g/dL Urine Color Urine Appearance (Clear) Urine pH (5.0-8.0) Ur Specific [place] (1.001-1.035) Urine Protein (Negative) Urine Glucose (UA) (Negative) Urine Ketones (Negative) Urine Blood (Negative) Urine Nitrite (Negative) Urine Bilirubin (Negative) Urine Urobilinogen (<2.0) mg/dL Ur Leukocyte Esterase (Negative) Urine RBC (0-5) /hpf Urine WBC (0-5) /hpf Urine Mucus (None) /hpf Coronavirus (PCR) (Not Detectd) Disposition Is patient prescribed a controlled substance at d/c from ED?: No Time of Disposition: 18:30 <Pavan Marrero P - Last Filed: 01/21/21 18:44> <Yanira Palma - Last Filed: 02/03/21 18:02> Clinical Impression: History of hypoglycemia, Leukocytosis Disposition: ADMITTED IP TO THIS HOSP Condition: Fair
[2021-01-21 17:46] LABS: Basophils # (A) 0.1 k/uL (0-0.2); Basophils % (A) 0 %; Eosinophils # (A) 0.2 k/uL (0-0.7); Eosinophils % (A) 1 %; HCT 48.3 % (39.0-53.0); HGB 16.3 gm/dL (13.0-17.5); Lymphocytes # (A) 1.5 k/uL (1.0-4.8); Lymphocytes % (A) 8 %; MCHC 33.9 g/dL (31.0-37.0); MCV 88.7 fL (80.0-100.0); Mean Platelet Volume 8.7; Monocytes # (A) 1.1 k/uL (0-1.0); Monocytes % (A) 6 %; Neutrophils # (A) 16.5 k/uL (1.3-7.7); Neutrophils % (A) 85 %; Platelet Count 165 k/uL (150-450); RBC 5.44 m/uL (4.30-5.90); RDW 13.3 % (11.5-15.5); WBC 19.5 k/uL (3.8-10.6)
--- NOTE | 2021-01-21 17:46 | XR ---
EXAMINATION TYPE: XR chest 1V portable DATE OF EXAM: 01/21/2021 COMPARISON: 10/17/2011 HISTORY: Cough TECHNIQUE: Single frontal view of the chest is obtained. FINDINGS: The exam is limited by the portable technique but grossly there is no large consolidative or masslike opacity. There is no pleural effusion or pneumothorax. The heart, pulmonary vasculature, mediastinum and hilum appear normal. The osseous structures are int act. IMPRESSION: Limited by the portable technique but no definite acute cardiopulmonary disease.
[2021-01-21 17:56] LABS: ALT 34 U/L (4-49); AST 38 U/L (17-59); African American GFR (CKD) >90 (>60 ml/min/1.73 sqM); Albumin 4.2 g/dL (3.5-5.0); Alkaline Phosphatase 117 U/L (38-126); Anion Gap 8 mmol/L; Appearance,Urine Clear (Clear); Bilirubin,Urine Negative (Negative); Blood Urea Nitrogen 35 mg/dL (9-20); Blood,Urine Negative (Negative); Calcium 9.7 mg/dL (8.4-10.2); Carbon Dioxide 26 mmol/L (22-30); Chloride 100 mmol/L (98-107); Color,Urine Light Yellow; Glucose 241 mg/dL (74-99); Glucose,Urine (UA) Trace (Negative); Ketones,Urine Negative (Negative); Leukocyte Esterase,Urine Small (Negative); Mucus,Urine Rare /hpf; Nitrite,Urine Negative (Negative); Non-African American GFR(CKD) 83 (>60 ml/min/1.73 sqM); Potassium 5.2 mmol/L (3.5-5.1); Protein,Urine Negative (Negative); RBC,Urine 1 /hpf (0-5); Sodium 134 mmol/L (137-145); Specific Gravity,Urine 1.011 (1.001-1.035); Total Bilirubin 0.7 mg/dL (0.2-1.3); Total Protein 7.1 g/dL (6.3-8.2); Urobilinogen,Urine <2.0 mg/dL (<2.0); WBC,Urine 9 /hpf (0-5)
[2021-01-21] MEDS ORDERED: SODIUM CHLORIDE 0.9% 500 ML 500 ML IV STA (18:25)
[2021-01-21] MEDS ORDERED: NALOXONE 0.4 MG/ML 1 ML VIAL IV PRN (18:39)
[2021-01-21] MEDS: SODIUM CHLORIDE 0.9% 1,000 ML IV SCH (18:50)
[2021-01-21 20:12] LABS: Glucose,Whole Blood 142 mg/dL (75-99)
[2021-01-21] MEDS: INSULIN ASPART (NovoLOG) 100 UNIT/ML VIAL SQ SCH (20:16)
[2021-01-21] MEDS: ATORVASTATIN 20 MG TAB PO SCH (20:16)
[2021-01-22 07:04] LABS: Glucose,Whole Blood 167 mg/dL (75-99)
[2021-01-22] MEDS: INSULIN ASPART (NovoLOG) 100 UNIT/ML VIAL SQ SCH ×4 (08:14→20:58)
[2021-01-22] MEDS: SODIUM CHLORIDE 0.9% 1,000 ML IV SCH (08:14)
[2021-01-22] MEDS: ASPIRIN 81 MG PO SCH (08:15)
[2021-01-22] MEDS: amLODIPine 10 MG TAB PO SCH (08:15)
[2021-01-22] MEDS: lisinopriL 10 MG TAB PO SCH (08:15)
[2021-01-22] MEDS: PANTOPRAZOLE 40 MG TABLET PO SCH (08:15)
[2021-01-22] MEDS ORDERED: NON FORMULARY DRUG (Omega-3 Fatty Acids/Fish Oil [Fish Oil 1,000 Mg Softgel] 1 EACH Capsul PO SCH (09:00)
[2021-01-22 11:15] LABS: Glucose,Whole Blood 233 mg/dL (75-99)
[2021-01-22] MEDS ORDERED: ALPRAZolam 0.25 MG TAB PO PRN (13:43)
[2021-01-22 14:01] VITALS: BMI 32.1
--- NOTE | 2021-01-22 14:28 | CT ---
EXAMINATION TYPE: CT brain wo con DATE OF EXAM: 01/22/2021 COMPARISON: None HISTORY: confusion, dizziness CT DLP: 1239 mGycm Automated exposure control for dose reduction was used. FINDINGS: Moderate generalized degenerative change with low attenuation in the white matter which is nonspecifi c. No acute hemorrhage or mass effect. Calvarium is intact. Intracranial atherosclerotic changes are noted. Craniocervical junction maintained. Sella turcica has a normal appearance. No acute hemorrhage or mid line shift. No mass effect. IMPRESSION: 1. Degenerative and nonspecific white matter change most typical remote ischemia. Correlate clinicall y.
[2021-01-22 14:44] LABS: Glucose,Whole Blood 314 mg/dL (75-99)
[2021-01-22] MEDS: INSULN ASP PRT/INSULIN ASPART 100 UNIT/ML 10 ML VIAL SQ SCH ×2 (14:47→20:58)
--- NOTE | 2021-01-22 14:47 | HP ---
HISTORY AND PHYSICAL DATE OF SERVICE: 01/22/2021. HISTORY OF PRESENT ILLNESS: This 80-year-old gentleman with a past medical history of multiple medical problems including history of diabetes, hypertension, hyperlipidemia, being followed by Dr. Natanael Gibbons in the outpatient setting has apparently had low blood sugar yesterday. The patient felt very tired, dizzy and the patient sat down on the on the ground, but the patient did not pass out. The blood sugar was found to be 54. The patient was admitted for further evaluation and treatment. There is no history of any fever, rigors or chills. No history of headache, loss of consciousness or seizures. The long-acting insulin has been held and blood sugar has been improving at this time. There is no history of any fever, rigors or chills. No history of any headache, loss of consciousness, or seizures at this time. PAST MEDICAL HISTORY: History of hypertension, hyperlipidemia, diabetes mellitus type 2. MEDICATIONS: Medications are home medications: 1. Norvasc. 2. Prilosec. 3. Fish oil. 4. Victoza. 5. NovoLog mix 70/30, 90 units subcu b.i.d. 6. Amaryl. 7. Vasotec. 8. Lipitor. 9. Aspirin. ALLERGIES: Allergies are none. FAMILY HISTORY: No history of heart disease or strokes in the family. SOCIAL HISTORY: Previous history of smoking. REVIEW OF SYSTEMS: ENT: No diminished hearing or diminished vision. CARDIOVASCULAR SYSTEM: No angina. RESPIRATORY SYSTEM: As mentioned earlier. GI: As mentioned earlier. : No dysuria. NERVOUS SYSTEM: No numbness or weakness. ALLERGY/IMMUNOLOGY: No asthma or hayfever. MUSCULOSKELETAL: As mentioned earlier. HEMATOLOGY/ONCOLOGY: No history of anemia. ENDOCRINE: As mentioned earlier. CONSTITUTIONAL: As mentioned earlier. DERMATOLOGY: Negative. RHEUMATOLOGY: Negative. PSYCHIATRY: As mentioned earlier. PHYSICAL EXAMINATION: The patient is alert and oriented x3. Pulse 68, blood pressure 125/70, respiration 18, temperature 97.6, pulse ox 94% on room air. HEENT: Conjunctivae normal. NECK: No jugular venous distention. CARDIOVASCULAR: S1, S2 muffled. RESPIRATORY: Breath sounds diminished at the bases. No rhonchi, no crackles. ABDOMEN: Soft, nontender. No mass palpable. LEGS: No edema, no swelling. NERVOUS SYSTEM: Higher function as mentioned earlier. Moves all 4 limbs. No focal motor or sensory deficits. LYMPHATICS: No lymphadenopathy of the neck, axillae or groin. SKIN: No ulcer, rash or bleeding. JOINTS: No active deforming arthropathy. LABS: Labs are at this time show WBC 19.5, sodium 134, potassium 5.2. Other labs are noted. ASSESSMENT: 1. Hypoglycemia for evaluation. 2. Possible presyncope for evaluation. 3. Increased WBC. 4. Hyponatremia. 5. Hyperkalemia, mild. 6. Diabetes mellitus type 2. 7. Hypertension. 8. Hyperlipidemia. 9. History of degenerative joint disease. 10.Remote history of nicotine dependence. 11.Obesity with body mass index of 32.1. 12.FULL CODE. RECOMMENDATIONS AND DISCUSSION: This 80-year-old gentleman who presented with multiple complex medical issues, we will monitor the patient closely. Continue the current medications. Continue symptomatic treatment. Otherwise at this time I recommend orthostatic vitals. I would also recommend a CT of the brain as a baseline workup. Full neurology and cardiology workup including 2D echo with Doppler. Guarded prognosis because of multiple complex medical issues. Further recommendations to follow. A copy of dictation forwarded to Dr. Natanael Gibbons who is the primary physician. Dr. Natanael Gibbons will follow in the morning. I will start reduced dose of NovoLog mix at this time. Further recommendations to follow. MMODL / IJN: [id number] /
[2021-01-22 17:27] LABS: Glucose,Whole Blood 79 mg/dL (75-99)
--- NOTE | 2021-01-22 17:35 | US ---
EXAMINATION TYPE: US carotid duplex BILAT DATE OF EXAM: 01/22/2021 COMPARISON: NONE CLINICAL HISTORY: tia. EXAM MEASUREMENTS: RIGHT: Peak Systolic Velocity (PSV) cm/sec ----- Right CCA: 91.6 ----- Right ICA: 143 ----- Right ECA: 299 ICA/CCA ratio: 1.57 RIGHT: End Diastole cm/sec ----- Right CCA: 14.3 ----- Right ICA: 22.1 ----- Right ECA: 0.0 LEFT: Peak Systolic Velocity (PSV) cm/sec ----- Left CCA: 77.1 ----- Left ICA: 202 ----- Left ECA: 145 ICA/CCA ratio: 2.62 LEFT: End Diastole cm/sec ----- Left CCA: 8.74 ----- Left ICA: 23.0 ----- Left ECA: 0.0 VERTEBRALS (direction of flow): Right Vertebral: Antegrade Left Vertebral: not seen Rhythm: Normal Mild to moderate plaque with mild velocity increases seen in right and left ICA's. IMPRESSION: There is antegrade flow in the right vertebral artery. Left vertebral artery flow was not identified. There is elevated velocity suggestive of 50-70% stenosis in both internal carotid arteries. There is more than 70% stenosis in the right external carotid artery and 50-70% stenosis in the left external carotid artery.. Criteria for Assigning % of Stenosis / Diameter reduction (Estimation based on the indirect measurements of the internal carotid artery velocities (ICA PSV). 1. Normal (no stenosis)=ICA PSV < 125 cm/s: ratio < 2.0: ICA EDV<40 cm/s. 2. Less than 50% stenosis=ICA PSV < 125 cm/s: ratio < 2.0: ICA EDV<40 cm/s. 3. 50 to 69% stenosis=ICA PSV of 125 to 230 cm/s: ration 2.0 ? 4.0: ICA EDV 40-100 cm/s. 4. Greater than 70% stenosis to near occlusion= ICA PSV > 230 cm/s: ratio > 4.0: ICA EDV > 100 cm/s. 5. Near occlusion= ICA PSV velocities may be low or undetectable: variable ratio and ICA EDV. 6. Total occlusion=unable to detect flow.
[2021-01-22] MEDS: ATORVASTATIN 20 MG TAB PO SCH (20:21)
[2021-01-22] MEDS: HEPARIN SODIUM,PORCINE/PF 5,000 UNIT/0.5 ML SYRINGE SQ SCH (20:21)
[2021-01-22 20:50] LABS: Glucose,Whole Blood 83 mg/dL (75-99)
[2021-01-23 00:54] LABS: Glucose,Whole Blood 221 mg/dL (75-99)
[2021-01-23] MEDS ORDERED: hydrALAZINE HCL 20 MG/ML 1 ML VIAL IVP PRN (07:07)
[2021-01-23 07:10] LABS: Glucose,Whole Blood 164 mg/dL (75-99)
--- NOTE | 2021-01-23 07:56 | P.PN ---
Subjective Progress Note Date: 01/23/21 Principal diagnosis: Recurrent hypoglycemic episodes Syncopal episode 80-year-old gentleman with past medical history of diabetes, hypertension, hyperlipidemia was admitted to the hospital for recurrent hypoglycemic episodes over the weekend with associated syncopal episode. Patient felt very tired and dizzy throughout the weekend and had episode where he fell to the ground without loss of consciousness. Patient's blood sugars have normalized throughout hospital stay insulin has been heldstarting 70/30 at 50 units twice a day monitor blood sugars. 01/23/2021 Evaluated patient this a.m. resting comfortably in bed with no complaints. Patient denies fever, chills, shortness of breath, palpitations, chest pain, abdominal pain, nausea,vomiting or diarrhea. We'll reduce 70/30 insulin to 50 units twice a day monitor blood sugars closely due to episodes of hypoglycemia. Awaiting echocardiogram. Awaiting diagnostics labs from this a.m. Objective - Vital Signs Vital signs: Vital Signs Temp 97.9 F 01/23/21 00:48 Pulse 79 01/23/21 00:48 Resp 16 01/23/21 02:00 BP 191/88 01/23/21 00:48 Pulse Ox 95 01/23/21 00:48 Intake & Output 01/22/21 01/23/21 01/23/21 18:59 06:59 18:59 Weight 104.326 kg Other: Voiding Method Toilet # Voids 1 2 - Constitutional General appearance: Present: cooperative - EENT Eyes: Present: EOMI, PERRLA, normal appearance Ears: bilateral: normal - Neck Neck: Present: normal ROM Carotids: bilateral: upstroke normal Thyroid: bilateral: normal size - Respiratory Respiratory: bilateral: CTA (Anterior and posterior lung smith) - Cardiovascular Heart rate: 64 Rhythm: regular Heart sounds: normal: S1, S2 - Peripheral pulses radial pulse Peripheral Pulses: bilateral: Normal dorsalis pedis Peripheral Pulses: bilateral: Normal - Gastrointestinal General gastrointestinal: Present: normal bowel sounds - Neurologic Neurologic: Present: CNII-XII intact - Musculoskeletal Musculoskeletal: Present: gait normal - Psychiatric Psychiatric: Present: A&O x's 3, appropriate affect, intact judgment & insight - Labs CBC & Chem 7: 01/21/21 17:30 01/21/21 17:30 Labs: Abnormal Lab Results - Last 24 Hours (Table) 01/22/21 01/22/21 01/23/21 Range/Units 11:14 14:42 00:53 POC Glucose (mg/dL) 233 H 314 H 221 H (75-99) mg/dL 01/23/21 Range/Units 06:56 POC Glucose (mg/dL) 164 H (75-99) mg/dL Assessment and Plan Assessment: Hypoglycemia Presyncopal episode Leukocytosis Hyponatremia Hyperkalemia Diabetes mellitus type 2 Hypertension Hyperlipidemia Degenerative joint disease Full code Plan: Hypoglycemic episodescontinue to monitor blood sugars decreasing insulin 70/30- 50 units twice a day Presyncopal episode awaiting echocardiogram Leukocytosiscontinue broad-spectrum IV antibiotics due to bronchospasm asthmatic cough Continue home medications Continue medical management Continue to monitor vital signs and diagnostic labs Further recommendations to come based on patient's clinical condition Time with Patient: Greater than 30
[2021-01-23] MEDS: INSULIN ASPART (NovoLOG) 100 UNIT/ML VIAL SQ SCH ×4 (08:10→20:21)
[2021-01-23] MEDS: HEPARIN SODIUM,PORCINE/PF 5,000 UNIT/0.5 ML SYRINGE SQ SCH ×2 (08:11→20:22)
[2021-01-23] MEDS: PANTOPRAZOLE 40 MG TABLET PO SCH (08:11)
[2021-01-23] MEDS: ASPIRIN 81 MG PO SCH (08:11)
[2021-01-23] MEDS: lisinopriL 10 MG TAB PO SCH (08:11)
[2021-01-23] MEDS: INSULN ASP PRT/INSULIN ASPART 100 UNIT/ML 10 ML VIAL SQ SCH ×2 (08:11→17:37)
[2021-01-23] MEDS: amLODIPine 10 MG TAB PO SCH (08:11)
[2021-01-23 09:08] LABS: Basophils # (A) 0.07 X 10*3/uL (0.00-0.10); Basophils % (A) 0.7 %; Eosinophils # (A) 0.19 X 10*3/uL (0.04-0.35); Eosinophils % (A) 1.8 %; HCT 46.6 % (39.6-50.0); HGB 15.1 g/dL (13.0-17.0); Lymphocytes # (A) 2.24 X 10*3/uL (0.90-5.00); MCH 29.3 pg (27.0-32.0); MCHC 32.4 g/dL (32.0-37.0); MCV 90.3 fL (80.0-97.0); Mean Platelet Volume 11.6 fL (9.5-12.2); Monocytes # (A) 0.95 X 10*3/uL (0.20-1.00); Monocytes % (A) 8.9 %; Neutrophils # (A) 7.07 X 10*3/uL (1.80-7.70); Neutrophils % (A) 66.4 %; Platelet Count 148 X 10*3/uL (140-440); RBC 5.16 X 10*6/uL (4.40-5.60); RDW 13.1 % (11.5-14.5); WBC 10.65 X 10*3/uL (4.50-10.00)
--- NOTE | 2021-01-23 09:25 | P.CNNES ---
History of Present Illness Consult date: 01/23/21 Requesting physician: Frandy Mccormick Reason for Consult: dizziness, fell at home History of Present Illness: This is a 80-year-old gentleman with medical history of diabetes mellitus, hyperlipidemia, hypertension who presented to the emergency department on 01/21/2021 with a complaint of low blood sugar. Patient stated that he has been having low blood sugar this past and Friday. Then he said over this past weekend he was outside and felt his walking was staggering, felt slight dizzy. As result he sat down and his neighbor came to help out and his daughter came as well. his blood sugar was checked and per the ED note was 51 (he also stated it was low). He denies any visual disturbance associate with a episode, focal weakness, numbness, difficulty getting his words out, difficulty swallowing. Since he's been the hospital he stated that he is back to his baseline and he is walking appropriately. He is not sure why his glucose was low. Patient stated that when the usually he goes out and uses a walker about one he is home he walks without any assistance. Patient some of home medication is aspirin 81 and Lipitor 20 mg. Some of the workup in the hospital consisted of: Initial vital signs: Blood pressure of 144/70, heart rate of 94, temperature of 97.4 Fahrenheit oral, respiratory rate 17, pulse ox of 97% at room air. CT of the head is reported as degenerative and nonspecific white matter changes most typical remote ischemia. Correlate clinically. Carotid duplex is reported as there is antegrade flow in the right vertebral artery. Left vertebral flow was not identified. There is elevated velocity suggesting of 50-70% stenosis of both internal carotid arteries. There is more than 70% stenosis in the right external carotid artery and 50-70% stenosis in the left external carotid artery. On initial presentation the patient 1 blood cell was 19.5. His initial POC glucose is 153 and his glucose at predominantly has been in the range of 160s to 200s. Sodium is 134 which is minimally low, potassium is 5.2 which is elevated the. Coronavirus PCR is not detected. Review of Systems Review of system: The 12 point system was reviewed and apparent positive and negative per HPI. Past Medical History Past Medical History: Diabetes Mellitus, Hyperlipidemia, Hypertension History of Any Multi-Drug Resistant Organisms: None Reported Past Surgical History: Joint Replacement Additional Past Surgical History / Comment(s): eye surgery Past Psychological History: No Psychological Hx Reported Smoking Status: Former smoker Past Alcohol Use History: None Reported Past Drug Use History: None Reported Medications and Allergies Home Medications Medication Instructions Recorded Confirmed Type Aspirin [Adult Low Dose Aspirin EC] 81 mg PO DAILY 02/01/20 01/21/21 History Atorvastatin [Lipitor] 20 mg PO HS 02/01/20 01/21/21 History Enalapril [Vasotec] 5 mg PO DAILY 02/01/20 01/21/21 History Glimepiride [Amaryl] 4 mg PO AC-BRKFST 02/01/20 01/21/21 History Insulin Aspart Protam & Aspart 90 unit SQ BID 02/01/20 01/21/21 History [NovoLOG MIX 70-30 Flexpen] Liraglutide [Victoza 2-Vasquez] 1.2 mg SQ DAILY 02/01/20 01/21/21 History Omeprazole [PriLOSEC] 40 mg PO DAILY 02/01/20 01/21/21 History amLODIPine [Norvasc] 10 mg PO DAILY 02/01/20 01/21/21 History Cutler-3 Fatty Acids/Fish Oil [Fish 1 cap PO DAILY 01/21/21 01/21/21 History Oil 1,000 mg Softgel] Allergies Allergy/AdvReac Type Severity Reaction Status Date / Time No Known Allergies Allergy Verified 01/21/21 17:10 Physical Examination - Vital Signs Vital Signs: Vital Signs Temp Pulse Resp BP Pulse Ox 01/23/21 06:50 97.9 F 87 16 160/45 97 01/23/21 02:00 16 01/23/21 00:48 97.9 F 79 16 191/88 95 01/22/21 20:00 17 01/22/21 19:09 98.3 F 69 16 146/49 95 01/22/21 15:00 97.9 F 66 16 117/65 95 Intake and Output 01/22/21 01/23/21 01/23/21 22:59 06:59 14:59 Other: Voiding Method Toilet Toilet # Voids 1 2 GENERAL: The patient is lying in bed and is not in acute distress. CHEST: The heart rate is regular rate rhythm. No murmurs to auscultation. No carotid bruit bilaterally. LUNG: Clear to auscultation bilaterally no wheezing noted throughout. Not labored breathing. ABDOMEN/GI: Bowel sounds present in all 4 quadrants. No tenderness to palpation throughout. NEUROLOGICAL: Higher mental function: The patient is awake, alert, oriented to self, place and time. Patient is following commands. No aphasia and no neglect. Cranial nerves: The pupils are round, equal and reactive to light and accommodation. Visual smith are full to confrontation throughout. Extraocular movement is intact no nystagmus is noted. Facial sensation is normal to touch throughout. The facial strength is normal throughout. Hearing is normal bilaterally to hand rub. Tongue is midline and moved [id number] without any difficulty. No dysarthria is noted. Shoulder shrug is normal bilaterally. Motor: Gait was normal with normal arm swing (did not require assistance). The strength is 5 over 5 throughout. Normal tone and bulk. Cerebellum: Normal finger to nose heel to chin bilaterally. Sensation: Sensation is normal to touch throughout. Reflexes (right/left): 2+ throughout. Plantars are downgoing bilaterally. Results - Laboratory Findings CBC and BMP: 01/23/21 05:01/21/21 17:30 Abnormal Lab Findings: Abnormal Labs 01/21/21 01/21/21 01/21/21 16:19 17:30 17:30 WBC 19.5 H Neutrophils # 16.5 H Monocytes # 1.1 H Sodium Potassium BUN Glucose POC Glucose (mg/dL) 153 H Urine Glucose (UA) Trace H Ur Leukocyte Esterase Small H Urine WBC 9 H Urine Mucus Rare H 01/21/21 01/21/21 01/22/21 17:30 20:11 07:02 WBC Neutrophils # Monocytes # Sodium 134 L Potassium 5.2 H BUN 35 H Glucose 241 H POC Glucose (mg/dL) 142 H 167 H Urine Glucose (UA) Ur Leukocyte Esterase Urine WBC Urine Mucus 01/22/21 01/22/21 01/23/21 11:14 14:42 00:53 WBC Neutrophils # Monocytes # Sodium Potassium BUN Glucose POC Glucose (mg/dL) 233 H 314 H 221 H Urine Glucose (UA) Ur Leukocyte Esterase Urine WBC Urine Mucus 01/23/21 06:56 WBC Neutrophils # Monocytes # Sodium Potassium BUN Glucose POC Glucose (mg/dL) 164 H Urine Glucose (UA) Ur Leukocyte Esterase Urine WBC Urine Mucus Assessment and Plan Assessment: Episode feeling unsteady walking and slight vertigo is likely due to patient hypoglycemic episode (had glucose of 51 when he had episode) Mild to Moderate bilateral internal Carotid stenosis (50-70%) per carotid duplex (which seem likely incidental findings) Diabetes mellitus with peripheral are glucose Hyperlipidemia Plan: CT of the head is reported as degenerative and nonspecific white matter changes most typical remote ischemia. Correlate clinically. Carotid duplex is reported as there is antegrade flow in the right vertebral artery. Left vertebral flow was not identified. There is elevated velocity suggesting of 50-70% stenosis of both internal carotid arteries. There is more than 70% stenosis in the right external carotid artery and 50-70% stenosis in the left external carotid artery. Patient is on aspirin 81mg daily. I also added Plavix 75mg daily for carotid stenosis. Is on Lipitor 20 mg. I will increase the Lipitor to 80 mg because of the carotid stenosis for secondary stroke prophylaxis. 2-D echo was ordered by the primary team is pending I consulted vascular surgeon team for the carotid stenosis. They stated no intervention and to follow-up as outpatient. MRI of the brain is not needed since it would not plant changer and patient is back to baseline. PT and OT are consulted Will defer the rest of the medical management to the primary team. Thank you for the consult. Jordon Nguyễn Md Neuro-Hospitalist Time with Patient: Greater than 30
[2021-01-23] MEDS: CLOPIDOGREL 75 MG TAB PO SCH (09:51)
--- NOTE | 2021-01-23 11:31 | ECHOF ---
Referral Reason:tia MEASUREMENTS -------- HEIGHT: 180.3 cm WEIGHT: 104.3 kg BP: 191/88 RVIDd: 3.8 cm (< 3.3) IVSd: 1.7 cm (0.6 - 1.1) LVIDd: 4.6 cm (3.9 - 5.3) LVPWd: 1.7 cm (0.6 - 1.1) IVSs: 2.2 cm LVIDs: 2.7 cm LVPWs: 2.3 cm LA Diam: 4.2 cm (2.7 - 3.8) LAESV Index (A-L): 29.23 ml/m Ao Diam: 3.8 cm (2.0 - 3.7) AV Cusp: 1.9 cm (1.5 - 2.6) MV EXCURSION: 14.126 mm (> 18.000) MV EF SLOPE: 37 mm/s (70 - 150) EPSS: 1.5 cm MV E Willis: 0.78 m/s MV DecT: 265 ms MV A Willis: 0.98 m/s MV E/A Ratio: 0.80 RAP: 5.00 mmHg RVSP: 43.54 mmHg FINDINGS -------- This was a technically difficult study with suboptimal apical views. The left ventricular size is normal. There is severe concentric left ventricular hypertrophy. Ove rall left ventricular systolic function is mild-moderately impaired with, an EF between 40 - 45 %. Basal inferior LV wall motion is hypokinetic. Basal inferoseptal LV wall motion is hypokinetic. The right ventricle is mild to moderately enlarged. LA is midly dilated 29-33ml/m2. The right atrium was not well visualized. 5.0mg of Lumason was utilized for enhancement of images Interatrial and interventricular septum intact. There is mild aortic valve sclerosis. The mitral valve leaflets are mildly thickened. Mild mitral annular calcification present. Mild tricuspid regurgitation present. There is mild pulmonary hypertension. The right ventricular systolic pressure, as measured by Doppler, is 43.54mmHg. Trace/mild (physiologic) pulmonic regurgitation. The aortic root is dilated measuring 3.8cm. IVC Not well visulized. There is no pericardial effusion. CONCLUSIONS -------- 1. The left ventricular size is normal. 2. There is severe concentric left ventricular hypertrophy. 3. Overall left ventricular systolic function is mild-moderately impaired with, an EF between 40 - 45 %. 4. Basal inferior LV wall motion is hypokinetic. 5. Basal inferoseptal LV wall motion is hypokinetic. 6. The right ventricle is mild to moderately enlarged. 7. LA is midly dilated 29-33ml/m2. 8. 5.0mg of Lumason was utilized for enhancement of images 9. There is mild aortic valve sclerosis. 10. The mitral valve leaflets are mildly thickened. 11. Mild mitral annular calcification present. 12. Mild tricuspid regurgitation present. 13. There is mild pulmonary hypertension. 14. The right ventricular systolic pressure, as measured by Doppler, is 43.54mmHg. 15. Trace/mild (physiologic) pulmonic regurgitation. 16. The aortic root is dilated measuring 3.8cm. 17. There is no pericardial effusion. SA[employer]AY OUT WORKER: DENIA Van
[2021-01-23 11:47] LABS: Glucose,Whole Blood 128 mg/dL (75-99)
--- NOTE | 2021-01-23 12:06 | P.GSCN ---
History of Present Illness Consult date: 01/23/21 Reason for Consult: carotid stenosis Requesting physician: Jordon Nguyễn History of present illness: A pleasant 80-year-old male who was sent in to the emergency department from his primary care physician for hypoglycemia. Is known to have a blood sugar of 51 upon arrival. He also had complaints of syncope, where he felt like his walking was staggered and slightly dizzy. He has a past medical history that includes diabetes mellitus, hyperlipidemia, and hypertension. He denies any other focal deficits such as vision changes, weakness, numbness, difficulty swallowing, or difficulty with speech. As part of his workup in the emergency department he had a CT of the brain which showed degenerative nonsp ecific white matter change most typical remote ischemia. He also underwent a carotid ultrasound and impression suggesting 50-70% stenosis in both internal carotid arteries therefore vascular surgery was consulted. He is seen and examined sitting up at the bedside. He denies any shortness breath, chest pain, abdominal pain, nausea or vomiting. He denies any current focal deficits and states his walking without any problems. He denies any dizziness, speech deficits, difficulty swallowing, visual changes, or extremity weakness at this time. Review of Systems 14 point review systems was completed all pertinent positives and negatives as stated in the HPI. Past Medical History Past Medical History: Diabetes Mellitus, Hyperlipidemia, Hypertension History of Any Multi-Drug Resistant Organisms: None Reported Past Surgical History: Joint Replacement Additional Past Surgical History / Comment(s): eye surgery Past Psychological History: No Psychological Hx Reported Smoking Status: Former smoker Past Alcohol Use History: None Reported Past Drug Use History: None Reported Medications and Allergies Home Medications Medication Instructions Recorded Confirmed Type Aspirin [Adult Low Dose Aspirin EC] 81 mg PO DAILY 02/01/20 01/21/21 History Atorvastatin [Lipitor] 20 mg PO HS 02/01/20 01/21/21 History Enalapril [Vasotec] 5 mg PO DAILY 02/01/20 01/21/21 History Glimepiride [Amaryl] 4 mg PO AC-BRKFST 02/01/20 01/21/21 History Insulin Aspart Protam & Aspart 90 unit SQ BID 02/01/20 01/21/21 History [NovoLOG MIX 70-30 Flexpen] Liraglutide [Victoza 2-Vasquez] 1.2 mg SQ DAILY 02/01/20 01/21/21 History Omeprazole [PriLOSEC] 40 mg PO DAILY 02/01/20 01/21/21 History amLODIPine [Norvasc] 10 mg PO DAILY 02/01/20 01/21/21 History Marana-3 Fatty Acids/Fish Oil [Fish 1 cap PO DAILY 01/21/21 01/21/21 History Oil 1,000 mg Softgel] Allergies Allergy/AdvReac Type Severity Reaction Status Date / Time No Known Allergies Allergy Verified 01/21/21 17:10 Surgical - Exam Vital Signs Temp Pulse Resp BP Pulse Ox 97.4 F L 94 17 144/70 97 01/21/21 16:13 01/21/21 16:13 01/21/21 16:13 01/21/21 16:13 01/21/21 16:13 General appearance: The patient is alert, oriented, in no acute distress. HET: Head is normocephalic and atraumatic. Pupils are equal and reactive. Oropharynx is clear without lesions. Neck: Supple without lymphadenopathy. Trachea midline. Heart: S1 S2. Regular rate and rhythm. Lungs: Clear to auscultation Abdomen: Soft, nontender, nondistended. Extremities: Normal skin color and turgor. Bilateral range of motion. Palpable bilateral radial pulses. No pedal edema. Neurological: No focal deficits. Strength and sensation are grossly intact. Speech is fluent, answers questions appropriately, tongue protrudes midline, patient ambulating without assistance with a steady gait. Results - Labs 01/23/21 05:01/21/21 17:30 Abnormal Lab Results - Last 24 Hours (Table) 01/22/21 01/22/21 01/23/21 Range/Units 11:14 14:42 00:53 WBC (4.50-10.00) X 10*3/uL Immature Gran # (0.00-0.04) X 10*3/uL POC Glucose (mg/dL) 233 H 314 H 221 H (75-99) mg/dL 01/23/21 01/23/21 Range/Units :11 06:56 WBC 10.65 H (4.50-10.00) X 10*3/uL Immature Gran # 0.13 H (0.00-0.04) X 10*3/uL POC Glucose (mg/dL) 164 H (75-99) mg/dL - Imaging Additional studies: Carotid ultrasound: Impression antegrade flow in the right vertebral artery. Left vertebral artery flow was not identified. There is elevated velocities suggestive of 50-70% stenosis in both internal carotid arteries. There is more than 70% stenosis in the right external carotid artery and 50 to 70s percent stenosis of the left external carotid artery. CT brain: Degenerative and nonspecific white matter change most typical remote ischemia. Correlate clinically Assessment and Plan Assessment: 1. Asymptomatic bilateral internal carotid artery stenosis approximately 50- 70%, more likely 60% 2. Hypoglycemia 3. Dizziness 4. Hyperlipidemia 5. Hypertension 6. Diabetes Plan: 1. Agree with aspirin, Plavix, and statin 2. Continue with recommendations per neurology 3. Medical management per primary team 4. Patient recommended to follow up as an outpatient for further evaluation and monitoring of carotid stenosis Thank you for this consultation, there is no acute indication for any vascular surgical intervention at this time. Patient recommended for outpatient follow- up with vascular surgery in the next 1-2 weeks. The impression and plan of care has been dictated as directed. Dr. Huffman I performed a history and examination of this patient, discussed the same with the dictator. I agree with the dictator's note ,documented as a scribe. Any additional findings or plans will be noted.
[2021-01-23 13:45] LABS: African American GFR (CKD) 93.8 (60.0-200.0); Anion Gap 18.1 mmol/L (4.00-12.00); BUN/Creat Ratio 32.22 Ratio (12.00-20.00); Calcium 8.8 mg/dL (8.7-10.3); Carbon Dioxide 18.9 mmol/L (21.6-31.8); Non-African American GFR(CKD) 80.9 (60.0-200.0); Potassium 4.7 mmol/L (3.5-5.5)
[2021-01-23 17:21] LABS: Glucose,Whole Blood 234 mg/dL (75-99)
[2021-01-23 20:17] LABS: Glucose,Whole Blood 268 mg/dL (75-99)
[2021-01-23] MEDS ORDERED: ATORVASTATIN 80 MG TAB PO SCH (21:00)
[2021-01-24 03:33] VITALS: PULSE 73
[2021-01-24 06:48] LABS: Basophils # (A) 0.1 k/uL (0-0.2); Basophils % (A) 1 %; Eosinophils # (A) 0.2 k/uL (0-0.7); Eosinophils % (A) 2 %; HCT 46.3 % (39.0-53.0); HGB 15.6 gm/dL (13.0-17.5); Lymphocytes # (A) 1.9 k/uL (1.0-4.8); Lymphocytes % (A) 18 %; MCH 29.7 pg (25.0-35.0); MCHC 33.6 g/dL (31.0-37.0); MCV 88.4 fL (80.0-100.0); Mean Platelet Volume 8.7; Monocytes # (A) 0.9 k/uL (0-1.0); Monocytes % (A) 8 %; Neutrophils # (A) 7.6 k/uL (1.3-7.7); Neutrophils % (A) 70 %; Platelet Count 150 k/uL (150-450); RBC 5.24 m/uL (4.30-5.90); RDW 13.2 % (11.5-15.5); WBC 10.8 k/uL (3.8-10.6)
[2021-01-24 07:03] LABS: Glucose,Whole Blood 124 mg/dL (75-99)
[2021-01-24 07:27] LABS: African American GFR (CKD) >90 (>60 ml/min/1.73 sqM); Anion Gap 6 mmol/L; Blood Urea Nitrogen 29 mg/dL (9-20); Calcium 9.3 mg/dL (8.4-10.2); Carbon Dioxide 27 mmol/L (22-30); Chloride 104 mmol/L (98-107); Glucose 123 mg/dL (74-99); Non-African American GFR(CKD) 87 (>60 ml/min/1.73 sqM); Sodium 137 mmol/L (137-145)
[2021-01-24 07:42] LABS: Potassium 4.6 mmol/L (3.5-5.1)
--- NOTE | 2021-01-24 08:06 | XR ---
EXAMINATION TYPE: XR chest 1V portable DATE OF EXAM: 01/24/2021 COMPARISON: 01/21/2021 INDICATION: Cough TECHNIQUE: Single frontal view of the chest is obtained. FINDINGS: The heart size is normal. The pulmonary vasculature is normal. Some streak atelectasis is in the periphery of the left midlung. No suspicious consolidations are magali dent. IMPRESSION: 1. Minimal streak atelectasis left midlung
[2021-01-24] MEDS: ASPIRIN 81 MG PO SCH (08:08)
[2021-01-24] MEDS: lisinopriL 10 MG TAB PO SCH (08:08)
[2021-01-24] MEDS: INSULIN ASPART (NovoLOG) 100 UNIT/ML VIAL SQ SCH (08:08)
[2021-01-24] MEDS: PANTOPRAZOLE 40 MG TABLET PO SCH (08:08)
[2021-01-24] MEDS: INSULN ASP PRT/INSULIN ASPART 100 UNIT/ML 10 ML VIAL SQ SCH (08:08)
[2021-01-24] MEDS: amLODIPine 10 MG TAB PO SCH (08:08)
[2021-01-24] MEDS: CLOPIDOGREL 75 MG TAB PO SCH (08:08)
[2021-01-24] MEDS: HEPARIN SODIUM,PORCINE/PF 5,000 UNIT/0.5 ML SYRINGE SQ SCH (08:08)
[2021-01-24 08:09] VITALS: BP 143/79; RESP 18; TEMP 97.7
--- NOTE | 2021-01-24 11:40 | P.PN ---
Subjective Progress Note Date: 01/24/21 Principal diagnosis: carotid stenosis The patient was seen and examined sitting up in the bedside chair. He states he is feeling great. Denies any difficulty with ambulation, denies any weakness in his upper or lower extremities or any other focal deficits. We again discussed with patient carotid ultrasound findings and patient is agreeable with outpatient follow-up. Objective - Vital Signs Vital signs: Vital Signs Temp 97.7 F 01/24/21 07:00 Pulse 73 01/24/21 07:00 Resp 18 01/24/21 07:00 BP 143/79 01/24/21 07:00 Pulse Ox 94 L 01/24/21 07:00 Intake & Output 01/23/21 01/24/21 01/24/21 18:59 06:59 18:59 Other: Voiding Method Toilet # Voids 3 0 # Bowel Movements 0 - Exam General appearance: The patient is alert, oriented, in no acute distress. HET: Head is normocephalic and atraumatic. Neck: Supple without lymphadenopathy. Trachea midline. Heart: S1 S2. Regular rate and rhythm. Lungs: Clear to auscultation Extremities: Normal skin color and turgor. No cyanosis, rash, ulceration, clubbing, or edema. Neurological: No focal deficits. Strength and sensation are grossly intact. - Labs CBC & Chem 7: 01/24/21 06:19 01/24/21 06:19 Labs: Abnormal Lab Results - Last 24 Hours (Table) 01/23/21 01/23/21 01/23/21 Range/Units 05:11 05:11 11:42 WBC 10.65 H (4.50-10.00) X 10*3/uL Immature Gran # 0.13 H (0.00-0.04) X 10*3/uL Carbon Dioxide 18.9 L (21.6-31.8) mmol/L Anion Gap 18.10 H (4.00-12.00) mmol/L BUN 29.0 H (9.0-27.0) mg/dL BUN/Creatinine Ratio 32.22 H (12.00-20.00) Ratio Glucose 168 H (70-110) mg/dL POC Glucose (mg/dL) 128 H (75-99) mg/dL 05/11/21 05/11/21 05/12/21 Range/Units 17:20 20:16 06:19 WBC 10.8 H (4.50-10.00) X 10*3/uL Immature Gran # (0.00-0.04) X 10*3/uL Carbon Dioxide (21.6-31.8) mmol/L Anion Gap (4.00-12.00) mmol/L BUN (9.0-27.0) mg/dL BUN/Creatinine Ratio (12.00-20.00) Ratio Glucose (70-110) mg/dL POC Glucose (mg/dL) 234 H 268 H (75-99) mg/dL 01/24/21 01/24/21 Range/Units 06:19 07:01 WBC (4.50-10.00) X 10*3/uL Immature Gran # (0.00-0.04) X 10*3/uL Carbon Dioxide (21.6-31.8) mmol/L Anion Gap (4.00-12.00) mmol/L BUN 29 H (9.0-27.0) mg/dL BUN/Creatinine Ratio (12.00-20.00) Ratio Glucose 123 H (70-110) mg/dL POC Glucose (mg/dL) 124 H (75-99) mg/dL Microbiology - Last 24 Hours (Table) 01/22/21 15:21 Blood Culture - Preliminary Blood No Growth after 24 hours Assessment and Plan Assessment: 1. Asymptomatic bilateral internal carotid artery stenosis approximately 50- 70%, more likely 60% 2. Hypoglycemia 3. Dizziness 4. Hyperlipidemia 5. Hypertension 6. Diabetes Plan: 1. Agree with aspirin, Plavix, and statin 2. Continue with recommendations per neurology 3. Medical management per primary team 4. Patient recommended to follow up as an outpatient for further evaluation and monitoring of carotid stenosis From a vascular surgical standpoint patient may be discharged home once medically cleared. Thank you for this consultation, there is no acute indication for any vascular surgical intervention at this time. Patient recommended for outpatient follow- up with vascular surgery in the next 1-2 weeks. The impression and plan of care has been dictated as directed. Dr. Huffman I performed a history and examination of this patient, discussed the same with the dictator. I agree with the dictator's note ,documented as a scribe. Any additional findings or plans will be noted.
--- NOTE | 2021-01-24 19:02 | P.DS ---
Providers Date of admission: 01/23/21 15:13 Expected date of discharge: 01/24/21 Attending physician: Natanael Gibbons Consults: 01/22/21 10:04 Consult Physician Routine Consulting Provider: Jordon Nguyễn Consult Reason/Comments: dizziness, fell at home Do you want consulting provider notified?: Yes 01/23/21 09:00 Consult Physician Routine Consulting Provider: Graciela Huffman Consult Reason/Comments: carotid stenosis Do you want consulting provider notified?: Yes Primary care physician: Natanael Gibbons Hospital Course: 80-year-old male was admitted to the hospital for hypoglycemic events and pre- syncopal episode. Patient has significant medical history of diabetes mellitus type II, hypertension, hyperlipidemia, severe degenerative joint disease, and multiple comorbidities. Patient was Admitted to the hospital due to hypoglycemic events blood sugars in the 40s and 50s; during hospital stay patients insulin has been adjusted with no events of hypoglycemic during hospital stay. Patient has significant diagnostic workup of echocardiogram with ejection fraction of 40 to 45%; carotid ultrasounds with carotid stenosis bilateral from 50 to 70%. Patient also had a CT of the head without contrast no acute findings noted. Chest x-ray showed mild streaking possible infiltrate patient was discharged home with antibiotics.Patient to follow up with primary care one to 2 days. Patient follow-up of vascular surgery regarding significant carotid stenosis for treatment plan. Patient was seen by neurology recommended Plavix, aspirin and high-dose statin for Carotid stenosis. Assessment: Hyperglycemia presyncopal Diabetes mellitus type II hypertension hyperlipidemia carotid stenosis ejection fraction 40 to 45% Leukocytosis degenerative joint disease Full code Health Concerns: Multiple comorbidities Pertinent Studies: CT the head no acute findings Echocardiogram ejection fraction 40 to 45% ultrasounds of bilateral carotid mild to moderate stenosis 50 to 60% Procedures: None performed Patient Condition at Discharge: Fair Plan - Discharge Summary New Discharge Prescriptions: New Atorvastatin [Lipitor] 80 mg PO HS 30 Days #30 tab Insuln Asp Prt/Insulin Aspart [NovoLOG MIX 70-30 VIAL] 50 unit SQ AC-BID #7 vial Clopidogrel [Plavix] 75 mg PO DAILY 30 Days #30 tab Azithromycin [Zithromax Z-pack (6 tabs)] See Taper PO DIRECTED 5 Days #6 tab Clopidogrel Bisulfate [Plavix] 75 mg PO DAILY 30 Days #30 tab Cefdinir [Omnicef] 300 mg PO Q12HR 5 Days #10 capsule Continue Aspirin [Adult Low Dose Aspirin EC] 81 mg PO DAILY Glimepiride [Amaryl] 4 mg PO AC-BRKFST amLODIPine [Norvasc] 10 mg PO DAILY Enalapril [Vasotec] 5 mg PO DAILY Omeprazole [PriLOSEC] 40 mg PO DAILY Liraglutide [Victoza 2-Vasquez] 1.2 mg SQ DAILY Victoria-3 Fatty Acids/Fish Oil [Fish Oil 1,000 mg Softgel] 1 cap PO DAILY Discontinued Atorvastatin [Lipitor] 20 mg PO HS Insulin Aspart Protam & Aspart [NovoLOG MIX 70-30 Flexpen] 90 unit SQ BID Discharge Medication List Aspirin [Adult Low Dose Aspirin EC] 81 mg PO DAILY 02/01/20 [History] Enalapril [Vasotec] 5 mg PO DAILY 02/01/20 [History] Glimepiride [Amaryl] 4 mg PO AC-BRKFST 02/01/20 [History] Liraglutide [Victoza 2-Vasquez] 1.2 mg SQ DAILY 02/01/20 [History] Omeprazole [PriLOSEC] 40 mg PO DAILY 02/01/20 [History] amLODIPine [Norvasc] 10 mg PO DAILY 02/01/20 [History] [place]-3 Fatty Acids/Fish Oil [Fish Oil 1,000 mg Softgel] 1 cap PO DAILY 01/21/21 [History] Atorvastatin [Lipitor] 80 mg PO HS 30 Days #30 tab 01/24/21 [Rx] Azithromycin [Zithromax Z-pack (6 tabs)] See Taper PO DIRECTED 5 Days #6 tab 01/24/21 [Rx] Cefdinir [Omnicef] 300 mg PO Q12HR 5 Days #10 capsule 01/24/21 [Rx] Clopidogrel Bisulfate [Plavix] 75 mg PO DAILY 30 Days #30 tab 01/24/21 [Rx] Clopidogrel [Plavix] 75 mg PO DAILY 30 Days #30 tab 01/24/21 [Rx] Insuln Asp Prt/Insulin Aspart [NovoLOG MIX 70-30 VIAL] 50 unit SQ AC-BID #7 vial 01/24/21 [Rx] Follow up Appointment(s)/Referral(s): Natanael Gibbons MD [Primary Care Provider] - 1-2 days Huffman,Graciela, DO [STAFF PHYSICIAN] - 2 Weeks Patient Instructions/Handouts: Hypoglycemia in a Person with Diabetes (DC) Activity/Diet/Wound Care/Special Instructions: activity as tolerated consistent carb diet Discharge Disposition: HOME SELF-CARE
== END 2021-01-24 11:10 | disposition home or self-care (01) | DRG 638 ==
LOC: EC 16:12 → 6NMEDSUR 18:44 → OBSVTOIN 01-23 15:13
PROVIDERS: ADMIT Family Medicine; ATTEND Family Medicine
DX: E11.65 Type 2 diabetes mellitus with hyperglycemia (principal); E87.1 Hypo-osmolality and hyponatremia; E11.649 Type 2 diabetes mellitus with hypoglycemia without coma; Z79.4 Long term (current) use of insulin; Z20.822 Contact with and (suspected) exposure to COVID-19; E66.9 Obesity, unspecified; M19.90 Unspecified osteoarthritis, unspecified site; E78.5 Hyperlipidemia, unspecified; I10 Essential (primary) hypertension; E87.5 Hyperkalemia; I65.23 Occlusion and stenosis of bilateral carotid arteries; J45.909 Unspecified asthma, uncomplicated; D72.829 Elevated white blood cell count, unspecified; Z71.3 Dietary counseling and surveillance; Z96.60 Presence of unspecified orthopedic joint implant; Z79.82 Long term (current) use of aspirin; Z79.899 Other long term (current) drug therapy; Z87.891 Personal history of nicotine dependence; Z68.32 Body mass index [BMI] 32.0-32.9, adult; Z91.81 History of falling
CPT/HCPCS: 36415; 70450; 71045; 80048; 80053; 81001; 85025; 85379; 87040; 87635; 93306; 93880; 99285

== ENCOUNTER → 2021-08-21 | Outpatient (CLI) | payer MEDICARE, BC ==
[2021-08-21 07:06] LABS: African American GFR (CKD) >90 (>60 ml/min/1.73 sqM); Blood Urea Nitrogen 24 mg/dL (9-20); Non-African American GFR(CKD) 83 (>60 ml/min/1.73 sqM)
--- NOTE | 2021-08-21 22:31 | CT ---
EXAMINATION TYPE: CT angio neck DATE OF EXAM: 08/21/2021 HISTORY: carotid stenosis COMPARISON: Carotid Doppler ultrasound 01/22/2021 CT DLP: 360.8 mGycm. Automated Exposure Control for Dose Reduction was Utilized. TECHNIQUE: CTA scan of the neck is performed with IV Contrast, patient injected with 65 mL of Isovue 370, axial images are obtained, coronal and sagittal reformatted images are reviewed. Three-D recons tructed images are created on an independent workstation and reviewed. Source images are reviewed. FINDINGS: Carotid/Vascular Structures: There is a three-vessel arch. Carotid bifurcations are patent. Internal carotid arteries are patent to the skull base. Atheromatous plaquing is at the origin of the right internal carotid artery. This is contributing to a moderate stenosis between 50 and 69%. Calculated narrowing is 57%. Atheromatous plaquing is present at the left carotid bifurcation. Calculated narrowing is 42%. 3-D re constructed images however suggest a more focal greater stenosis. When to be more in line with the ul trasound findings. Cervical of [place]: Vertebral basilar system appears normal. Posterior cerebral vasculature is unrema rkable. Internal carotid arteries bifurcate normally into A1 and M1 segments. A2 segments are normal. The anterior communicating artery is patent. Left Posterior communicating artery is visualized. Righ t posterior communicating artery is patent. IMPRESSION: 1. Moderate narrowing right internal carotid artery origin. 2. Mild narrowing of the left internal carotid origin based on measurement. However, 3-D reconstructe d images suggest a more severe focal stenosis at the origin, likely greater than on the right. 2. No acute suspicious changes [place] of [place]. NASCET criteria was used in interpretation of this exam?
== END | disposition home or self-care (01) ==
LOC: RADCTMAIN 06:16
PROVIDERS: ATTEND Surgery
DX: I65.23 Occlusion and stenosis of bilateral carotid arteries (principal)
CPT/HCPCS: 82565; 84520; 70498; 36415; Q9967

== ENCOUNTER → 2022-04-29 | Outpatient (CLI) | payer MEDICARE ==
[2022-04-29 11:01] LABS: HGB 13.6 g/dL (13.0-17.0); MCH 29.1 pg (27.0-32.0); MCHC 33.2 g/dL (32.0-37.0); MCV 87.6 fL (80.0-97.0); Mean Platelet Volume 12.1 fL (9.5-12.2); NRBC Per 100 WBC 0 /100 WBCS (0.0-0.0); Platelet Count 144 X 10*3/uL (140-440); RBC 4.68 X 10*6/uL (4.40-5.60); RDW 13.4 % (11.5-14.5)
[2022-04-29 14:51] LABS: ALT 24 U/L (10-49); AST 28 U/L (14-35); African American GFR (CKD) 99.2 (60.0-200.0); BUN/Creat Ratio 16.45 Ratio (12.00-20.00); Blood Urea Nitrogen 12.7 mg/dL (9.0-27.0); Calcium 9.1 mg/dL (8.7-10.3); Carbon Dioxide 26.1 mmol/L (20.0-27.5); Chloride 106 mmol/L (96-109); Chol/HDL Ratio 4.39 Ratio; Glucose 99 mg/dL (70-110); LDL Cholesterol,Calculated 103.5 mg/dL (0.0-131.0); Non-African American GFR(CKD) 85.6 (60.0-200.0); Potassium 3.8 mmol/L (3.5-5.5); Sodium 144 mmol/L (135-145)
== END | disposition home or self-care (01) ==
LOC: LABWHC1 07:41
PROVIDERS: ATTEND Internal Medicine Cardiovascular Disease
DX: E78.2 Mixed hyperlipidemia (principal)
CPT/HCPCS: 36415; 80048; 80061; 84443; 84450; 84460; 85027